=== PATIENT | male | born 1945 | race Caucasian/White ===

== ENCOUNTER 2017-07-15 17:11 | Inpatient (IN) ==
[2017-07-15] MEDS ORDERED: *HR* HYDROmorphone (PF) 1 MG/ML SYRINGE IVP ONE (17:34)
[2017-07-15] MEDS ORDERED: Ondansetron 4 MG/2 ML VIAL IVP ONE (17:34)
[2017-07-15] MEDS ORDERED: Bisacodyl 10 MG RECTAL SUPPOSITORY RC STA (18:06)
--- NOTE | 2017-07-15 18:31 | Emergency Department Note ---
Disposition Clinical Impression: Bowel obstruction Qualifiers: Intestinal obstruction type: unspecified Intestinal obstruction extent: unspecified extent Qualified Code(s): K56.609 - Unspecified intestinal obstruction, unspecified as to partial versus complete obstruction Disposition: Admitted As Inpatient Condition: Fair Time of Disposition: 18:32 Abdominal Pain HPI - General Chief Complaint: ED Abdominal Pain Stated Complaint: constipation Time Seen by Provider: 07/15/17 17:25 Source: patient Nursing Notes Reviewed: Yes Vital Signs Reviewed: Yes - History of Present Illness HPI Narrative: Patient has abdominal pain for the last 4 days which began gradually and is constant and is intermittently worse and is told sensation without radiation to the back. It is generalized. [facility] done and showed dilation of the bowel. Patient does not have any fever or vomiting. No dysuria or urinary frequency, blood in the urine or stool. No history of abdominal surgeries. Social history: No smoking or alcohol. Is here with his Pain Scale: 4 - Related Data Previous Rx's Medication Instructions Recorded levoFLOXacin [Levaquin] 500 mg PO DAILY #6 tablet 03/11/16 Allergies Allergy/AdvReac Type Severity Reaction Status Date / Time senna AdvReac Unknown Verified 07/15/17 18:13 Review of Systems: Constitutional: No fever Vision: No blurred vision ENT: No rhinorrhea Respiratory: No cough Allergic: No allergies : No blood in urine GI: No blood in stool Hematologic: No bruising Dermatologic: No skin rash Musculoskeletal: No pain in the extremities Neuro: No numbness of the extremities Abdominal Pain PMH - Past Medical History Medical history: Reports: asthma, COPD, coronary artery disease, GERD, glaucoma , hyperlipidemia, hypertension, migraine, RA, renal disease, thyroid disease, other Male Surgical History: Reports: other Psychiatric history: Reports: anxiety, depression - Social History Smoking status: Former smoker Alcohol use: Reports: none Drug use: Reports: none Physical Exam CONSTITUTIONAL: Alert and oriented X3, well-nourished, well appearing, in no apparent distress HEAD: Normocephalic; atraumatic. EYES: PERRL, no scleral icterus. NOSE: The nose is normal in appearance without rhinorrhea RESP: Normal chest excursion with respiration; breath sounds clear and equal bilaterally; no wheezes, rhonchi, or rales CARD: Regular rhythm, without murmurs, rub or gallop ABD: The abdomen has generalized distention to moderate to severe degree and generalized moderate to severe tenderness with palpation but soft without rigidity, rebound, guarding. Skin color is normal in appearance SKIN: Normal for age and race; warm and dry; no apparent lesions - General General appearance: alert Course Vital Signs Temperature 97.9 F 07/15/17 17:13 Pulse Rate 103 07/15/17 17:13 Respiratory Rate 16 07/15/17 17:13 Blood Pressure 155/109 07/15/17 17:13 O2 Sat by Pulse Oximetry 96 07/15/17 17:13 Temperature 98.9 F 07/15/17 18:14 Pulse Rate 94 07/15/17 18:14 Respiratory Rate 15 07/15/17 18:14 Blood Pressure 136/102 07/15/17 18:14 O2 Sat by Pulse Oximetry 98 07/15/17 18:14 Oxygen Delivery Oxygen Delivery Room Air Abdominal Pain - MDM Narrative Medical decision making narrative: I did review the patient's labs which show hyponatremia with a sodium of 125, no leukocytosis, CT scan is reviewed showing dilation of the transverse and right ascending colon possibly from a stricture. This is discussed with surgery and they did review the CT scan also. The patient is admitted to the hospitalist who accepts the patient for admission and surgery's consult at the patient did receive IV pain medicine and IV fluids. Declines any further pain medicine at this time. 183
[2017-07-15] MEDS ORDERED: *HR* Morphine 2 MG/ML SYRINGE IVP ONE (20:02)
[2017-07-15] MEDS ORDERED: Ketoconazole 2% CRM 15 GM TUBE TP PRN (21:17)
[2017-07-15] MEDS ORDERED: Naloxone 0.4 MG/ML INJ IVP PRN (21:19)
--- NOTE | 2017-07-15 21:28 | Internal Med History&Physical ---
Date of Encounter: 07/15/17 Time of Encounter: 21:00 Assessment and Plan (1) Bowel obstruction Current visit: Yes Status: Acute Acute abdominal pain and distention - secondary to large bowel obstruction, the left transverse and right ascending colon NPO, NG tube to low intermittent suction, IV fluids, IV Zofran IV Protonix IV Morphine as needed for pain CT abdomen - reviewed Gen. surgery consult Cardiac telemetry, intake output, labs in a.m., monitor closely Qualifiers: Intestinal obstruction type: unspecified Intestinal obstruction extent: unspecified extent Qualified Code(s): K56.609 - Unspecified intestinal obstruction, unspecified as to partial versus complete obstruction (2) Hypertension Current visit: Yes Status: Chronic Essential hypertension, controlled, monitor Qualifiers: Hypertension type: essential hypertension Qualified Code(s): I10 - Essential (primary) hypertension (3) Hyperlipidemia Current visit: Yes Status: Chronic Qualifiers: Hyperlipidemia type: unspecified Qualified Code(s): E78.5 - Hyperlipidemia , unspecified (4) DVT prophylaxis Current visit: Yes Status: Acute Heparin subcutaneous Internal Medicine - H&P: HPI Chief complaint: Abdominal pain and distention Admitted From: Emergency Dept Plans for Post Hospital Care: Home History of present illness: Mr. Briggs is a 72 year old male with past medical history of COPD, coronary artery disease, GERD, hyper tension, hyperlipidemia, arthritis, renal disease, thyroid disease, anxiety and depression. He presents to the ED with complaints of abdominal pain and distention. Examined in the room. Patient is awake and alert. Family is at bedside. Not in any distress. He is able to provide all history. Patient is hard of hearing. Patient states pain and distention started about 4 days ago and has gradually worsened. He complains of generalized abdominal pain. Rates at 6/ 10. No aggravating or alleviating factors. He does have nausea and vomiting which is aggravated with food intake. His intake has been poor over the past several days. Patient states he does have a history of chronic constipation with intermittent diarrhea as well. He has never been diagnosed with IBS in the past. Patient denies chest pain or shortness of breath. Denies headache or cough. No other acute complaints. Patient was transferred to the ED from the [facility]. Initial workup revealed dilation of the transverse and right ascending colon possibly from a stricture. General surgery was consulted. They have advised IV fluids and IV pain medication. NG tube to low intermittent suction. Patient and family have been explained about his condition plan of care in detail. They understood and agreed. No unanswered questions. CODE STATUS full code. Past Med Surg Social Fam HX - Past Medical History Medical history: asthma, COPD, coronary artery disease, GERD, glaucoma, hyperlipidemia, hypertension, migraine, RA, renal disease, thyroid disease, other Psychiatric history: anxiety, depression - Past Surgical History Surgical History: no surgical history - Social History Smoking Status: Former smoker Smokeless Tobacco Status: No Alcohol use: none Drug use: none Internal Medicine - H&P: Meds Alendronate Sodium [Fosamax] 5 mg PO DAILY 07/15/17 [History] Aspirin Enteric Coated [Aspirin EC] 81 mg PO DAILY 07/15/17 [History] Atorvastatin Calcium [Lipitor] 80 mg PO HS 07/15/17 [History] Brimonidine 0.2% [Alphagan] 1 drop BOTH EYES BID 07/15/17 [History] Carboxymethylcellulose Sodium [Refresh Liquigel] 1 drop BOTH EYES QID 07/15/17 [ History] Cholecalciferol (D-3) [Vitamin D] 1,000 unit PO BID 07/15/17 [History] Clobetasol Propionate [Temovate] 1 appl TP BID 07/15/17 [History] Cyanocobalamin (Vitamin B-12) [Vitamin B12] 2,000 mcg PO DAILY 07/15/17 [History ] Cyclobenzaprine [Flexeril] 10 mg PO BID PRN 07/15/17 [History] Cyclosporine [Restasis Multidose] 1 drop BOTH EYES Q12H 07/15/17 [History] Folic Acid 1 mg PO DAILY 07/15/17 [History] HydrOXYzine 10 mg PO BID PRN 07/15/17 [History] Isosorbide MONOnitrate (24 HR) [Imdur] 15 mg PO DAILY 07/15/17 [History] Ketoconazole 2% CRM [Nizoral Cream] 1 appl TP BID PRN 07/15/17 [History] Ketoconazole Shampoo [Nizoral Shampoo] 1 appl TP Q48H 07/15/17 [History] Lisinopril 2.5 mg PO DAILY 07/15/17 [History] Magic Mouthwash [Magic Mouthwash BLM] 15 ml PO DAILY 07/15/17 [History] Magnesium Hydroxide [Milk of Magnesia] 1,200 mg PO BID PRN 07/15/17 [History] Melatonin [Melatin] 6 mg PO HS 07/15/17 [History] Metoprolol [Lopressor] 25 mg PO BID 07/15/17 [History] Mirtazapine [Remeron] 30 mg PO HS 07/15/17 [History] Nitroglycerin [Nitrostat] 0.4 mg SL Q5M PRN 07/15/17 [History] Omeprazole [PriLOSEC] 40 mg PO DAILY 07/15/17 [History] Pilocarpine HCl [Salagen] 5 mg PO TID 07/15/17 [History] Polyethylene Glycol 3350 [MiraLAX] 17 gm PO Q48H 07/15/17 [History] Quetiapine Fumarate [SEROquel] 600 mg PO HS 07/15/17 [History] SUMAtriptan Succinate [Imitrex] 100 mg PO Q2H PRN MDD 200 mg 07/15/17 [History] Sucralfate [Carafate] 1 gm PO QAM AND QHS 07/15/17 [History] Tamsulosin [Flomax] 0.4 mg PO DAILY 07/15/17 [History] Topiramate [Topamax] 150 mg PO HS 07/15/17 [History] Tramadol HCl [Ultram] 75 mg PO QID PRN 07/15/17 [History] predniSONE [PredniSONE] 5 mg PO DAILY 07/15/17 [History] 3 Allergy/AdvReac Type Severity Reaction Status Date / Time senna AdvReac Unknown Verified 07/15/17 18:13 All Systems PM: A 10-system review of systems was performed and is negative for pertinent findings except as documented above in the HPI. - Constitutional Constitutional: fatigue, weakness, no fever(s) - EENT Eyes: no blurry vision - Cardiovascular Cardiovascular ROS IM: no chest pain, no diaphoresis, no dyspnea, no dyspnea on exertion, no edema, no lightheadedness, no orthopnea, no palpitations, no syncope - Respiratory Respiratory: no cough, no dyspnea, no hemoptysis, no dyspnea on exertion, no wheezing, no chest congestion - Gastrointestinal Gastrointestinal: abdominal pain, bloating, cramping, diarrhea, heartburn, nausea, vomiting, no hematochezia - Genitourinary Genitourinary ROS male: no dysuria - Neurological Neurological ROS: no abnormal gait, no confusion, no convulsions, no dizziness, no numbness, no tingling - Constitutional Vitals: Temp Pulse Resp BP Pulse Ox 97.7 F 83 16 138/101 97 07/15/17 18:56 07/15/17 18:56 07/15/17 18:56 07/15/17 18:56 07/15/17 18:56 General appearance: Present: cooperative, A&O X 3, pleasant, no acute distress, answers questions appropriately - Head Head exam: Present: atraumatic - Eye Eye exam: Present: EOMI - ENT ENT exam: Present: mucous membranes dry - Respiratory Respiratory exam: Present: CTAB. Absent: rales, rhonchi, wheezes, tachypnea - Cardiovascular Cardiovascular exam: Present: RRR, +S1, +S2 - GI/Abdominal GI/Abdominal exam: Present: distended, firm, tenderness (Mild generalized), no peritoneal signs. Absent: guarding, soft - Extremities Exam Extremities exam: Present: radial pulses palpable and symmetrical. Absent: calf tenderness, cyanotic, pedal edema - Neurological Exam Neurological exam: Present: alert, oriented X3, no focal deficits. Absent: facial droop, speech deficit Internal Med - H&P Results - Labs CBC & Chem 7: 07/15/17 21:52 07/15/17 21:52
[2017-07-15 21:59] LABS: Eosinophils # 0.1 K/mcL (0.0-0.6); Eosinophils % 1.5 %; Hematocrit 30.8 % (37.5-50.1); Immature Granulocytes % 0.2 % (0-4); Immature Platelets 2.4 % (1.1-6.1); Lymphocytes # 0.7 K/mcL (0.6-4.6); Lymphocytes % 15.3 %; Mean Corpuscular HGB Conc 35.7 g/dL (31.6-35.5); Mean Corpuscular Hemoglobin 32.4 pg (28.0-33.3); Mean Corpuscular Volume 90.6 fL (83.0-100.0); Mean Platelet Volume 8.9 fL (9.4-12.4); Monocytes # 0.8 K/mcL (0.0-1.3); Monocytes % 17.5 %; Platelet Count 189 K/mcL (140-400); Red Cell Distribution Width 12.8 % (11.5-14.5); Segmented Neutrophils % 65.5 %
[2017-07-15 22:05] LABS: INR 1.1
[2017-07-15] MEDS: Pantoprazole 40 MG VIAL IVP SCH (22:12)
[2017-07-15] MEDS: 0.9 % Sodium Chloride 1,000 ML IVC SCH (22:12)
[2017-07-15 22:13] LABS: Alanine Aminotransferase 22 Units/L (0-55); Albumin 3.1 g/dL (3.5-5.0); Albumin/Globulin Ratio 1.2 (1.1-2.2); Alkaline Phosphatase 67 Units/L (38-126); Aspartate Amino Transferase 20 Units/L (5-34); BUN/Creatinine Ratio 21 (6-26); Bilirubin,Total 0.9 mg/dL (0.2-1.2); Blood Urea Nitrogen 23 mg/dL (8-26); Calcium 8.4 mg/dL (8.6-10.8); Carbon Dioxide 22 mEq/L (19-29); Chloride 93 mEq/L (98-109); Globulin 2.6 g/dL (2.4-3.5); Glucose 85 mg/dL (70-99); Magnesium 2.6 mg/dL (1.6-2.6); Osmolality,Calculated 257 (280-300); Potassium 3.6 mEq/L (3.5-4.5); Sodium 122 mEq/L (136-145); Total Protein 5.7 g/dL (6.0-8.3); eGFR For African Americans > 60 (> 60); eGFR For Non-African Americans > 60 (> 60)
[2017-07-16] MEDS: *HR* Morphine 2 MG/ML SYRINGE IVP PRN ×7 (01:44→21:00)
[2017-07-16] MEDS: *HR* Heparin 5,000 UNIT/ML VIAL SQ SCH ×2 (04:47→17:00)
[2017-07-16 05:07] LABS: Bilirubin,Urine Negative (Negative); Blood,Urine Negative (Negative); Clarity,Urine Clear (Clear); Color,Urine Yellow (Yellow); Glucose,Urine (UA) Normal (Normal); Ketones,Urine Negative (Negative); Leukocyte Esterase,Urine Negative (Negative); Nitrite,Urine Negative (Negative); PH,Urine 6.5 pH Units (5.0-8.0); Protein,Urine Negative (Neg-Trace); Specific Gravity,Urine 1.023 (1.010-1.025); Urobilinogen,Urine Normal (Normal)
[2017-07-16 05:24] LABS: Eosinophils # 0.1 K/mcL (0.0-0.6); Eosinophils % 1.4 %; Hematocrit 31.5 % (37.5-50.1); Hemoglobin 11.1 g/dL (12.9-16.9); Immature Granulocytes % 0.5 % (0-4); Lymphocytes # 0.5 K/mcL (0.6-4.6); Lymphocytes % 11.5 %; Mean Corpuscular HGB Conc 35.2 g/dL (31.6-35.5); Mean Corpuscular Hemoglobin 32.3 pg (28.0-33.3); Mean Corpuscular Volume 91.6 fL (83.0-100.0); Mean Platelet Volume 9.6 fL (9.4-12.4); Monocytes # 0.7 K/mcL (0.0-1.3); Monocytes % 16.3 %; Neutrophils # 3.1 K/mcL (1.6-8.9); Platelet Count 180 K/mcL (140-400); Red Blood Count 3.44 M/mcL (4.19-5.50); Red Cell Distribution Width 12.7 % (11.5-14.5); Segmented Neutrophils % 70.3 %
[2017-07-16 05:38] LABS: BUN/Creatinine Ratio 18 (6-26); Blood Urea Nitrogen 20 mg/dL (8-26); Calcium 8.3 mg/dL (8.6-10.8); Carbon Dioxide 21 mEq/L (19-29); Chloride 94 mEq/L (98-109); Glucose 76 mg/dL (70-99); Osmolality,Calculated 259 (280-300); Potassium 3.5 mEq/L (3.5-4.5); Sodium 124 mEq/L (136-145); eGFR For African Americans > 60 (> 60); eGFR For Non-African Americans > 60 (> 60)
[2017-07-16] MEDS: Pantoprazole 40 MG VIAL IVP SCH (07:59)
[2017-07-16] MEDS: Artificial Tears SOLN 15 ML BOTTLE BOTH EYES SCH ×4 (07:59→21:00)
[2017-07-16 09:47] LABS: BUN/Creatinine Ratio 16 (6-26); Blood Urea Nitrogen 17 mg/dL (8-26); Calcium 7.9 mg/dL (8.6-10.8); Carbon Dioxide 20 mEq/L (19-29); Chloride 96 mEq/L (98-109); Glucose 74 mg/dL (70-99); Osmolality,Calculated 260 (280-300); Potassium 3.4 mEq/L (3.5-4.5); Sodium 125 mEq/L (136-145); eGFR For African Americans > 60 (> 60); eGFR For Non-African Americans > 60 (> 60)
[2017-07-16] MEDS: 0.9 % Sodium Chloride 1,000 ML IVC SCH (10:50)
[2017-07-16] MEDS: Chloraseptic Spray 177 ML BOTTLE MM PRN ×2 (11:39→16:59)
--- NOTE | 2017-07-16 12:18 | General Surgery Consult Note ---
Date of Encounter: 07/16/17 Time of Encounter: 12:16 Assessment and Plan (1) Adynamic ileus Current Visit: Yes Status: Acute We will continue with NG decompression of his stomach and bowel rest. I will recheck an acute abdominal series tomorrow to evaluate the dilation of the small bowel loops as well as his colon. I discussed this plan with the family. Everybody is in agreement. History of Present Illness Consult date: 07/16/17 History of present illness: This is 72-year-old male presents to the hospital via the emergency department[facility] and was sent to [facility] due to abdominal distention and obstipation symptoms and increasing abdominal pain. Patient has dementia. The majority of the information was taken from the and daughter. He has never had any episodes like this in the past. He denies any appetite currently. He also denies having any flatus. States his abdominal pain is moderate in nature and feels as if he is cramping continually. Past Med Surg Social Fam HX - Past Medical History Medical history: asthma, COPD, coronary artery disease, GERD, glaucoma, hyperlipidemia, hypertension, migraine, RA, renal disease, thyroid disease, other Psychiatric history: anxiety, depression, other (Dementia) - Past Surgical History Surgical History: no surgical history - Social History Smoking Status: Former smoker Smokeless Tobacco Status: No Alcohol use: none Drug use: none Medications and Allergies Alendronate Sodium [Fosamax] 5 mg PO DAILY 07/15/17 [History] Aspirin Enteric Coated [Aspirin EC] 81 mg PO DAILY 07/15/17 [History] Atorvastatin Calcium [Lipitor] 80 mg PO HS 07/15/17 [History] Brimonidine 0.2% [Alphagan] 1 drop BOTH EYES BID 07/15/17 [History] Carboxymethylcellulose Sodium [Refresh Liquigel] 1 drop BOTH EYES QID 07/15/17 [ History] Cholecalciferol (D-3) [Vitamin D] 1,000 unit PO BID 07/15/17 [History] Clobetasol Propionate [Temovate] 1 appl TP BID 07/15/17 [History] Cyanocobalamin (Vitamin B-12) [Vitamin B12] 2,000 mcg PO DAILY 07/15/17 [History ] Cyclobenzaprine [Flexeril] 10 mg PO BID PRN 07/15/17 [History] Cyclosporine [Restasis Multidose] 1 drop BOTH EYES Q12H 07/15/17 [History] Folic Acid 1 mg PO DAILY 07/15/17 [History] HydrOXYzine 10 mg PO BID PRN 07/15/17 [History] Isosorbide MONOnitrate (24 HR) [Imdur] 15 mg PO DAILY 07/15/17 [History] Ketoconazole 2% CRM [Nizoral Cream] 1 appl TP BID PRN 07/15/17 [History] Ketoconazole Shampoo [Nizoral Shampoo] 1 appl TP Q48H 07/15/17 [History] Lisinopril 2.5 mg PO DAILY 07/15/17 [History] Magic Mouthwash [Magic Mouthwash BLM] 15 ml PO DAILY 07/15/17 [History] Magnesium Hydroxide [Milk of Magnesia] 1,200 mg PO BID PRN 07/15/17 [History] Melatonin [Melatin] 6 mg PO HS 07/15/17 [History] Metoprolol [Lopressor] 25 mg PO BID 07/15/17 [History] Mirtazapine [Remeron] 30 mg PO HS 07/15/17 [History] Nitroglycerin [Nitrostat] 0.4 mg SL Q5M PRN 07/15/17 [History] Omeprazole [PriLOSEC] 40 mg PO DAILY 07/15/17 [History] Pilocarpine HCl [Salagen] 5 mg PO TID 07/15/17 [History] Polyethylene Glycol 3350 [MiraLAX] 17 gm PO Q48H 07/15/17 [History] Quetiapine Fumarate [SEROquel] 600 mg PO HS 07/15/17 [History] SUMAtriptan Succinate [Imitrex] 100 mg PO Q2H PRN MDD 200 mg 07/15/17 [History] Sucralfate [Carafate] 1 gm PO QAM AND QHS 07/15/17 [History] Tamsulosin [Flomax] 0.4 mg PO DAILY 07/15/17 [History] Topiramate [Topamax] 150 mg PO HS 07/15/17 [History] Tramadol HCl [Ultram] 75 mg PO QID PRN 07/15/17 [History] predniSONE [PredniSONE] 5 mg PO DAILY 07/15/17 [History] 3 Allergy/AdvReac Type Severity Reaction Status Date / Time senna AdvReac Unknown Verified 07/15/17 18:13 Review of Systems All systems PM: reviewed and no additional remarkable complaints except as stated All systems PM: A 10-system review of systems was performed and is negative for pertinent findings except as documented above in the HPI. General Surgery Exam Initial Vital Signs Temp Pulse Resp BP Pulse Ox 97.9 F 103 16 155/109 96 07/15/17 17:13 07/15/17 17:13 07/15/17 17:13 07/15/17 17:13 07/15/17 17:13 - General physical appearance well nourished, no distress - Eyes normal ocular movement - Neck trachea midline - Respiratory normal respiratory effort - Cardiovascular Cardiovascular exam: Present: RRR - Abdomen Abdomen general surgery: Present: soft, non tender - Integumentary Integumentary general surgery: Present: no abnormal pigmentation - Neurologic Present: CN 2-12 grossly intact, normal sensation - Psychiatric Psychiatric general surgery: Present: A&Ox3 Exam Initial Vital Signs Temp Pulse Resp BP Pulse Ox 97.9 F 103 16 155/109 96 07/15/17 17:13 07/15/17 17:13 07/15/17 17:13 07/15/17 17:13 07/15/17 17:13 Results - Labs 07/16/17 04:26 07/16/17 09:30 Abnormal lab results RBC 3.44 M/mcL (4.19-5.50) L 07/16/17 04:26 Hgb 11.1 g/dL (12.9-16.9) L 07/16/17 04:26 Hct 31.5 % (37.5-50.1) L 07/16/17 04:26 Lymphocytes # 0.5 K/mcL (0.6-4.6) L 07/16/17 04:26 Sodium 125 mEq/L (136-145) L 07/16/17 09:30 Potassium 3.4 mEq/L (3.5-4.5) L 07/16/17 09:30 Chloride 96 mEq/L (98-109) L 07/16/17 09:30 Calculated Osmolality 260 (280-300) L 07/16/17 09:30 Calcium 7.9 mg/dL (8.6-10.8) L 07/16/17 09:30 Serum Total Protein 5.7 g/dL (6.0-8.3) L 07/15/17 21:52 Albumin 3.1 g/dL (3.5-5.0) L 07/15/17 21:52 Diabetes panel 07/15/17 07/16/17 07/16/17 Range/Units 21:52 04:26 09:30 Sodium 122 L 124 L 125 L (136-145) mEq/L Potassium 3.6 3.5 3.4 L (3.5-4.5) mEq/L Chloride 93 L 94 L 96 L (98-109) mEq/L Carbon Dioxide 22 21 20 (19-29) mEq/L BUN 23 20 17 (8-26) mg/dL Creatinine 1.11 1.11 1.04 (0.72-1.25) mg/dL Glucose 85 76 74 (70-99) mg/dL Calcium 8.4 L 8.3 L 7.9 L (8.6-10.8) mg/dL AST 20 (5-34) Units/L ALT 22 (0-55) Units/L Alkaline Phosphatase 67 (38-126) Units/L Albumin 3.1 L (3.5-5.0) g/dL Calcium panel 07/15/17 07/16/17 07/16/17 Range/Units 21:52 04:26 09:30 Calcium 8.4 L 8.3 L 7.9 L (8.6-10.8) mg/dL Albumin 3.1 L (3.5-5.0) g/dL Pituitary panel 07/15/17 07/16/17 07/16/17 Range/Units 21:52 04:26 09:30 Sodium 122 L 124 L 125 L (136-145) mEq/L Potassium 3.6 3.5 3.4 L (3.5-4.5) mEq/L Chloride 93 L 94 L 96 L (98-109) mEq/L Carbon Dioxide 22 21 20 (19-29) mEq/L BUN 23 20 17 (8-26) mg/dL Creatinine 1.11 1.11 1.04 (0.72-1.25) mg/dL Glucose 85 76 74 (70-99) mg/dL Calcium 8.4 L 8.3 L 7.9 L (8.6-10.8) mg/dL Adrenal panel 07/15/17 07/16/17 07/16/17 Range/Units 21:52 04:26 09:30 Sodium 122 L 124 L 125 L (136-145) mEq/L Potassium 3.6 3.5 3.4 L (3.5-4.5) mEq/L Chloride 93 L 94 L 96 L (98-109) mEq/L Carbon Dioxide 22 21 20 (19-29) mEq/L BUN 23 20 17 (8-26) mg/dL Creatinine 1.11 1.11 1.04 (0.72-1.25) mg/dL Glucose 85 76 74 (70-99) mg/dL Calcium 8.4 L 8.3 L 7.9 L (8.6-10.8) mg/dL Total Bilirubin 0.9 (0.2-1.2) mg/dL AST 20 (5-34) Units/L ALT 22 (0-55) Units/L Alkaline Phosphatase 67 (38-126) Units/L Albumin 3.1 L (3.5-5.0) g/dL All other labs normal. Consult Discharge Plan - Plan Referrals: NONE,PCP [Primary Care Provider] -
--- NOTE | 2017-07-16 15:28 | Internal Med Progress Note ---
Date of Encounter: 07/16/17 Time of Encounter: 09:10 - Assessment and plan (1) Adynamic ileus Current Visit: Yes Status: Acute Assessment and plan: Patient has been seen by surgery today. Recommendations include continuing with NG decompression of his stomach, bowel rest. Acute abdominal series is ordered for tomorrow for reevaluation. KUB X-Ray 07/16/17 03:11 IMPRESSION: 1. The orogastric tube side port is noted proximal to the GE junction. This should be advanced approximately 11 cm. D/ / Jacob Zapata MD / Jacob Zapata MD Interpreting Provider: Jacob Zapata MD (2) Bowel obstruction Current Visit: Yes Status: Acute Assessment and plan: She reports several day history of acute abdominal pain and distention, CAT scan from outside facility showed large bowel obstruction in the left transverse and right ascending colon. His abdomen is distended, firm, tender. Patient only has faint, hypoactive bowel sounds in right lower quadrant. Continue NG tube to LI WS Continue IV fluid hydration Continue Accu-Cheks and treatment of hypoglycemia as needed. Continue IV Zofran and Protonix. Continue IV morphine as needed for pain. Qualifiers: Intestinal obstruction type: unspecified Intestinal obstruction extent: unspecified extent Qualified Code(s): K56.609 - Unspecified intestinal obstruction, unspecified as to partial versus complete obstruction (3) Hypertension Current Visit: Yes Status: Chronic Assessment and plan: Blood pressure is borderline. Will continue to evaluate and treat as needed after patient is no longer acutely ill. Qualifiers: Hypertension type: essential hypertension Qualified Code(s): I10 - Essential (primary) hypertension (4) Hyperlipidemia Current Visit: Yes Status: Chronic Assessment and plan: Chronic. Continue home medication. Qualifiers: Hyperlipidemia type: unspecified Qualified Code(s): E78.5 - Hyperlipidemia , unspecified (5) DVT prophylaxis Current Visit: Yes Status: Acute Assessment and plan: Heparin subcutaneous. - Time Spent With Patient less than 15 minutes - Subjective Interval history: Patient was seen and assessed at 9 AM. He reports 3-4 day history of abdominal pain, distention. Patient is alert and awake, appears to answer questions appropriately. Abdomen is distended, tender to palpation. Bowel sounds are absent. He denies diarrhea, nausea. He does report continued abdominal pain and we have adjusted his pain medication several times today to attempt to make him more comfortable. He denies chest pain shortness of breath or dizziness. We will continue to monitor. - Constitutional Vitals: Temp Pulse Resp BP Pulse Ox 98.1 F 50 16 148/83 97 07/16/17 15:21 07/16/17 15:21 07/16/17 15:21 07/16/17 15:21 07/16/17 15:21 General appearance: Present: cooperative, A&O X 3, pleasant, no acute distress, answers questions appropriately - Head Head exam: Present: atraumatic, normal inspection, normocephalic - Eye Eye exam: Present: normal appearance, conjuntiva pink, sclera anicteric - Neck Neck exam general surgery: Present: normal inspection, supple, trachea midline. Absent: lymphadenopathy, tenderness - Respiratory Respiratory exam: Present: CTAB. Absent: accessory muscle use, rales, rhonchi, wheezes - Cardiovascular Cardiovascular exam: Present: RRR, +S1, +S2. Absent: diastolic murmur, gallop, rubs, systolic murmur - GI/Abdominal GI/Abdominal exam: Present: diminished bowel sounds, distended, firm, tenderness. Absent: normal bowel sounds - Extremities Exam Extremities exam: Present: normal capillary refill, warm, radial pulses palpable and symmetrical. Absent: calf tenderness, cyanotic, pedal edema, tenderness - Neurological Exam Neurological exam: Present: alert, oriented X3, no focal deficits. Absent: facial droop, speech deficit - Skin Skin exam: Present: dry, intact, normal color, warm. Absent: rash Internal Medicine: Result - Labs CBC & Chem 7: 07/16/17 04:26 07/16/17 09:30 Labs: Short CBC 07/15/17 07/16/17 Range/Units 21:52 04:26 WBC 4.6 4.4 (4.3-11.1) K/mcL Hgb 11.0 L 11.1 L (12.9-16.9) g/dL Hct 30.8 L 31.5 L (37.5-50.1) % Plt Count 189 180 (140-400) K/mcL Neutrophils # 3.0 3.1 (1.6-8.9) K/mcL BMP 07/15/17 07/16/17 07/16/17 21:52 04:26 09:30 Sodium 122 L 124 L 125 L Potassium 3.6 3.5 3.4 L Chloride 93 L 94 L 96 L Carbon Dioxide 22 21 20 BUN 17 Creatinine 1.11 1.11 1.04 Glucose 85 76 74 Calcium 8.4 L 8.3 L 7.9 L Liver Function 07/15/17 Range/Units 21:52 Total Bilirubin 0.9 (0.2-1.2) mg/dL AST 20 (5-34) Units/L ALT 22 (0-55) Units/L Alkaline Phosphatase 67 (38-126) Units/L Albumin 3.1 L (3.5-5.0) g/dL Urine 07/16/17 Range/Units 04:58 Urine Color Yellow (Yellow) Urine Clarity Clear (Clear) Urine pH 6.5 (5.0-8.0) pH Units Ur Specific [place] 1.023 (1.010-1.025) Urine Protein Negative (Neg-Trace) mg/dL Urine Glucose (UA) Normal (Normal) mg/dL - ABG Interpretation ABG results: PT/INR, D-dimer PT 12.0 Seconds (9.4-12.1) 07/15/17 21:52 - Impressions Impressions KUB X-Ray 07/16/17 03:11 IMPRESSION: 1. The orogastric tube side port is noted proximal to the GE junction. This should be advanced approximately 11 cm. D/ / Jacob Zapata MD / Jacob Zapata MD Interpreting Provider: Jacob Zapata MD Consult Discharge Plan - Plan Referrals: NONE,PCP [Primary Care Provider] -
[2017-07-16] MEDS: D5% in 0.9% NACL 1,000 ML IVC SCH (16:59)
[2017-07-17] MEDS: *HR* Morphine 2 MG/ML SYRINGE IVP PRN ×4 (02:45→22:52)
[2017-07-17] MEDS: *HR* Heparin 5,000 UNIT/ML VIAL SQ SCH ×2 (05:59→17:57)
[2017-07-17] MEDS: D5% in 0.9% NACL 1,000 ML IVC SCH ×2 (06:23→22:57)
[2017-07-17 08:45] LABS: Basophils % 0.2 %; Eosinophils # 0.1 K/mcL (0.0-0.6); Eosinophils % 2.5 %; Hemoglobin 10.9 g/dL (12.9-16.9); Immature Granulocytes % 0.2 % (0-4); Immature Platelets 1.8 % (1.1-6.1); Lymphocytes # 0.4 K/mcL (0.6-4.6); Lymphocytes % 7.4 %; Mean Corpuscular HGB Conc 35.2 g/dL (31.6-35.5); Mean Corpuscular Hemoglobin 32.3 pg (28.0-33.3); Mean Platelet Volume 8.4 fL (9.4-12.4); Monocytes # 0.7 K/mcL (0.0-1.3); Monocytes % 14.1 %; Neutrophils # 3.7 K/mcL (1.6-8.9); Platelet Count 198 K/mcL (140-400); Red Blood Count 3.37 M/mcL (4.19-5.50); Red Cell Distribution Width 12.7 % (11.5-14.5); Segmented Neutrophils % 75.6 %
[2017-07-17 08:56] LABS: BUN/Creatinine Ratio 11 (6-26); Blood Urea Nitrogen 10 mg/dL (8-26); Calcium 8.2 mg/dL (8.6-10.8); Carbon Dioxide 24 mEq/L (19-29); Chloride 101 mEq/L (98-109); Glucose 105 mg/dL (70-99); Osmolality,Calculated 271 (280-300); Potassium 3.3 mEq/L (3.5-4.5); Sodium 131 mEq/L (136-145); eGFR For African Americans > 60 (> 60); eGFR For Non-African Americans > 60 (> 60)
[2017-07-17] MEDS: Artificial Tears SOLN 15 ML BOTTLE BOTH EYES SCH ×4 (10:07→20:04)
[2017-07-17] MEDS: Pantoprazole 40 MG VIAL IVP SCH (10:08)
--- NOTE | 2017-07-17 11:08 | General Surgery Progress Note ---
Date of Encounter: 07/17/17 Time of Encounter: 11:00 - Assessment and Plan (1) Adynamic ileus Current Visit: Yes Status: Acute Continue with conservative measure including: Bowel rest NG tube to LIWS SBFT today with gastrograffin via NG tube IV fluids Supportive care and pain control Serial abdominal exams Surgery will continue to follow and assess progress Subjective Patient reports: no new complaints, still having pain (mid-abdomen, mild improvement), voiding w/o difficulty, no flatus, no bowel movement, afebrile Objective Vital Signs - Last 8 Hours Temp Pulse Resp BP Pulse Ox 07/17/17 10:44 97.7 F 96 17 138/90 97 07/17/17 06:41 97.4 F L 71 16 115/80 94 07/17/17 04:04 98.1 F 94 16 161/106 96 Intake and Output 07/16/17 07/17/17 07/17/17 23:59 07:59 15:59 Intake Total 1000 / 1000 Output Total 750 / 750 1450 / 1450 Balance -750 / -750 -450 / -450 Intake: IV Fluids 1000 / 1000 D5% And 0.9% Nacl 1000 Ml 1,000 1000 / 1000 ML @ 75 mls/hr IVC .[id number] [facility] Rx#:[id number] Output: Urine 750 / 750 1250 / 1250 Gastric Drainage 200 / 200 Other: Weight 70.875 kg Blood Glucose* 66 129 Patient Weight 07/17/17 23:59 Weight 70.875 kg - General physical appearance well developed, well nourished, no distress - Eyes normal ocular movement - ENT dry mucosa, atraumatic, normocephalic - Neck Neck exam: trachea midline - Respiratory normal respiratory effort, clear to auscultation - Cardiovascular Cardiovascular exam: Present: RRR - Abdomen Abdomen: Present: soft, distended (improved), tender (mid-abdomen), wound (NG tube to LIWS with 250ml noted since midnight) - Neurologic CN 2-12 grossly intact - Psychiatric oriented to time, oriented to person, oriented to place, speech is normal, memory intact - Labs 07/17/17 08:39 07/17/17 08:39 Diabetes panel 07/17/17 Range/Units 08:39 Sodium 131 L (136-145) mEq/L Potassium 3.3 L (3.5-4.5) mEq/L Chloride 101 (98-109) mEq/L Carbon Dioxide 24 (19-29) mEq/L BUN 10 (8-26) mg/dL Creatinine 0.91 (0.72-1.25) mg/dL Glucose 105 H (70-99) mg/dL Calcium 8.2 L (8.6-10.8) mg/dL Calcium panel 07/17/17 Range/Units 08:39 Calcium 8.2 L (8.6-10.8) mg/dL Pituitary panel 07/17/17 Range/Units 08:39 Sodium 131 L (136-145) mEq/L Potassium 3.3 L (3.5-4.5) mEq/L Chloride 101 (98-109) mEq/L Carbon Dioxide 24 (19-29) mEq/L BUN 10 (8-26) mg/dL Creatinine 0.91 (0.72-1.25) mg/dL Glucose 105 H (70-99) mg/dL Calcium 8.2 L (8.6-10.8) mg/dL Adrenal panel 07/17/17 Range/Units 08:39 Sodium 131 L (136-145) mEq/L Potassium 3.3 L (3.5-4.5) mEq/L Chloride 101 (98-109) mEq/L Carbon Dioxide 24 (19-29) mEq/L BUN 10 (8-26) mg/dL Creatinine 0.91 (0.72-1.25) mg/dL Glucose 105 H (70-99) mg/dL Calcium 8.2 L (8.6-10.8) mg/dL - Imaging Additional Studies: Chest/Abdomen X-ray 07/17/17 07:00 IMPRESSION: 1. Enteric tube with the side-port in the mid to distal esophagus. Recommend advancement by at least 8 cm. 2. No acute cardiopulmonary abnormality. 3. Prominent air-filled loops of bowel seen throughout the abdomen with stool within the colon. D/ / Reginaldo Arzola MD / Reginaldo Arzola MD Interpreting Provider: Reginaldo Arzola MD X-Ray 07/17/17 08:54 IMPRESSION: Nasogastric tube projects is intragastric. Advancement of 5 cm is suggested. Nonspecific bowel gas pattern. Left basilar atelectasis. D/ / Jacob Rodríguez MD / Jacob Rodríguez MD Interpreting Provider: Jacob Rodríguez MD Consult Discharge Plan - Plan Referrals: NONE,PCP [Primary Care Provider] -
--- NOTE | 2017-07-17 17:04 | Internal Med Progress Note ---
Date of Encounter: 07/17/17 Time of Encounter: 09:35 - Assessment and plan (1) Adynamic ileus Current Visit: Yes Status: Acute Assessment and plan: Patient has been seen by surgery today. Recommendations include continuing with NG decompression of his stomach, bowel rest. Small bowel follow-through being performed today. Surgery recommend serial abdominal exams Supportive care and pain control IV fluids Maintain NG tube to low intermittent wall suction Continued bowel rest Surgery is following. I appreciate their consultation and recommendations. Chest/Abdomen X-ray 07/17/17 07:00 IMPRESSION: 1. Enteric tube with the side-port in the mid to distal esophagus. Recommend advancement by at least 8 cm. 2. No acute cardiopulmonary abnormality. 3. Prominent air-filled loops of bowel seen throughout the abdomen with stool within the colon. D/ / Reginaldo Arzola MD / Reginaldo Arzola MD Interpreting Provider: Reginaldo Arzola MD X-Ray 07/17/17 08:54 IMPRESSION: Nasogastric tube projects is intragastric. Advancement of 5 cm is suggested. Nonspecific bowel gas pattern. Left basilar atelectasis. D/ / Jacob Rodríguez MD / Jacob Rodríguez MD Interpreting Provider: Jacob Rodríguez MD X-Ray 07/16/17 03:11 IMPRESSION: 1. The orogastric tube side port is noted proximal to the GE junction. This should be advanced approximately 11 cm. D/ / Jacob Zapata MD / Jacob Zapata MD Interpreting Provider: Jacob Zapata MD (2) Bowel obstruction Current Visit: Yes Status: Acute Assessment and plan: Patient reports several day history of acute abdominal pain and distention, CAT scan from outside facility showed large bowel obstruction in the left transverse and right ascending colon. His abdomen is distended, firm, tender. Patient only has faint, hypoactive bowel sounds in right lower quadrant. Continue NG tube to LI WS Continue IV fluid hydration Continue Accu-Cheks and treatment of hypoglycemia as needed. Continue IV Zofran and Protonix. Continue IV morphine as needed for pain. Plan as above Qualifiers: Intestinal obstruction type: unspecified Intestinal obstruction extent: unspecified extent Qualified Code(s): K56.609 - Unspecified intestinal obstruction, unspecified as to partial versus complete obstruction (3) Hypertension Current Visit: Yes Status: Chronic Assessment and plan: Blood pressure is borderline. Will continue to evaluate and treat as needed after patient is no longer acutely ill. Hydralazine IV when necessary with parameters. Qualifiers: Hypertension type: essential hypertension Qualified Code(s): I10 - Essential (primary) hypertension (4) Hyperlipidemia Current Visit: Yes Status: Chronic Assessment and plan: Chronic. Continue home medication. Qualifiers: Hyperlipidemia type: unspecified Qualified Code(s): E78.5 - Hyperlipidemia , unspecified (5) DVT prophylaxis Current Visit: Yes Status: Acute Assessment and plan: Heparin subcutaneous. - Subjective Interval history: Patient was seen and assessed at 935 AM. He is alert, awake, visiting with family member at bedside. He states his pain is somewhat better today. His abdomen is less distended and firm, abdomen is slightly softer today with bowel sounds heard in lower abdomen. He denies any bowel movements and states he has no appetite. He denies any headache, dizziness, chest pain or shortness of breath. - Constitutional Vitals: Temp Pulse Resp BP Pulse Ox 98.5 F 105 15 166/103 99 07/17/17 15:12 07/17/17 15:12 07/17/17 15:12 07/17/17 15:12 07/17/17 15:12 General appearance: Present: cooperative, A&O X 3, pleasant, no acute distress, answers questions appropriately - Head Head exam: Present: atraumatic, normal inspection, normocephalic - Eye Eye exam: Present: normal appearance, conjuntiva pink, sclera anicteric - Neck Neck exam general surgery: Present: normal inspection, supple, trachea midline. Absent: lymphadenopathy, tenderness - Respiratory Respiratory exam: Present: CTAB. Absent: accessory muscle use, rales, rhonchi, wheezes - Cardiovascular Cardiovascular exam: Present: RRR, +S1, +S2. Absent: diastolic murmur, gallop, rubs, systolic murmur - GI/Abdominal GI/Abdominal exam: Present: normal bowel sounds, soft, no peritoneal signs. Absent: distended, hepatomegaly, tenderness - Extremities Exam Extremities exam: Present: normal capillary refill, normal inspection, warm, radial pulses palpable and symmetrical. Absent: calf tenderness, cyanotic, pedal edema, tenderness - Neurological Exam Neurological exam: Present: alert, oriented X3, no focal deficits. Absent: facial droop, speech deficit - Skin Skin exam: Present: dry, intact, normal color, warm. Absent: rash Internal Medicine: Result - Labs CBC & Chem 7: 07/17/17 08:39 07/17/17 08:39 Labs: Short CBC 07/17/17 Range/Units 08:39 WBC 4.9 (4.3-11.1) K/mcL Hgb 10.9 L (12.9-16.9) g/dL Hct 31.0 L (37.5-50.1) % Plt Count 198 (140-400) K/mcL Neutrophils # 3.7 (1.6-8.9) K/mcL BMP 07/17/17 08:39 Sodium 131 L Potassium 3.3 L Chloride 101 Carbon Dioxide 24 BUN 10 Creatinine 0.91 Glucose 105 H Calcium 8.2 L - ABG Interpretation ABG results: PT/INR, D-dimer PT 12.0 Seconds (9.4-12.1) 07/15/17 21:52 - Impressions Impressions Chest/Abdomen X-ray 07/17/17 07:00 IMPRESSION: 1. Enteric tube with the side-port in the mid to distal esophagus. Recommend advancement by at least 8 cm. 2. No acute cardiopulmonary abnormality. 3. Prominent air-filled loops of bowel seen throughout the abdomen with stool within the colon. D/ / Reginaldo Arzola MD / Reginaldo Arzola MD Interpreting Provider: Reginaldo Arzola MD X-Ray 07/17/17 08:54 IMPRESSION: Nasogastric tube projects is intragastric. Advancement of 5 cm is suggested. Nonspecific bowel gas pattern. Left basilar atelectasis. D/ / Jacob Rodríguez MD / Jacob Rodríguez MD Interpreting Provider: Jacob Rodríguez MD Consult Discharge Plan - Plan Referrals: NONE,PCP [Primary Care Provider] -
[2017-07-18] MEDS: *HR* Heparin 5,000 UNIT/ML VIAL SQ SCH ×2 (05:15→18:35)
--- NOTE | 2017-07-18 11:30 | General Surgery Progress Note ---
Date of Encounter: 07/18/17 Time of Encounter: 11:27 - Assessment and Plan (1) Adynamic ileus Current Visit: Yes Status: Acute Continue with conservative measure including: Bowel rest NG tube to LIWS IV fluids Supportive care and pain control Serial abdominal exams Surgery will continue to follow and assess progress; awaiting return of bowel function (2) Hypokalemia Current Visit: Yes Status: Acute replete lytes Subjective Patient reports: no new complaints, other (no acute distress; ) Objective Vital Signs - Last 8 Hours Temp Pulse Resp BP Pulse Ox 07/18/17 11:26 97.8 F 63 16 137/87 94 07/18/17 06:58 98.7 F 97 16 149/88 96 07/18/17 04:01 98.4 F 90 16 146/93 96 Intake and Output 07/17/17 07/18/17 07/18/17 23:59 07:59 15:59 Intake Total 1000 / 1000 Output Total 1150 / 1150 Balance -150 / -150 Intake: IV Fluids 1000 / 1000 D5% And 0.9% Nacl 1000 Ml 1,000 1000 / 1000 ML @ 75 mls/hr IVC .[id number] [facility] Rx#:[id number] Oral 0 / 0 Output: Urine 350 / 350 Gastric Tube Lavage Amount 0 / 0 Right Nare 0 / 0 Wound Drainage 800 / 800 NG Tube 800 / 800 Other: Stool Size Moderate Moderate Stool Consistency liquid liquid Stool Characteristics Normal for Patient Stool Color Brown Brown # Bowel Movements 2 1 Weight 67.812 kg Blood Glucose* 114 107 Patient Weight 07/18/17 23:59 Weight 67.812 kg - General physical appearance well developed, well nourished, no distress - ENT normocephalic - Respiratory normal expansion, normal respiratory effort - Cardiovascular Cardiovascular exam: Present: RRR - Abdomen Abdomen: Present: soft, distended (mildy distended; non peritoneal) - Neurologic CN 2-12 grossly intact - Psychiatric oriented to time, oriented to person, oriented to place - Labs 07/17/17 08:39 07/17/17 08:39 Consult Discharge Plan - Plan Referrals: NONE,PCP [Primary Care Provider] -
[2017-07-18] MEDS: Artificial Tears SOLN 15 ML BOTTLE BOTH EYES SCH ×4 (12:18→21:56)
[2017-07-18] MEDS: Pantoprazole 40 MG VIAL IVP SCH (12:19)
[2017-07-18] MEDS: D5% in 0.9% NACL 1,000 ML IVC SCH (12:21)
[2017-07-18] MEDS: *HR* Morphine 2 MG/ML SYRINGE IVP PRN ×3 (13:54→22:07)
--- NOTE | 2017-07-18 17:04 | Internal Med Progress Note ---
Date of Encounter: 07/18/17 Time of Encounter: 13:30 - Assessment and plan (1) Adynamic ileus Current Visit: Yes Status: Acute Assessment and plan: Patient has been seen by surgery today. Recommendations include continuing with NG decompression of his stomach, bowel rest. Small bowel follow-through being performed today. Surgery recommend serial abdominal exams Supportive care and pain control IV fluids Maintain NG tube to low intermittent wall suction Continued bowel rest Surgery is following. I appreciate their consultation and recommendations. Chest/Abdomen X-ray 07/17/17 07:00 IMPRESSION: 1. Enteric tube with the side-port in the mid to distal esophagus. Recommend advancement by at least 8 cm. 2. No acute cardiopulmonary abnormality. 3. Prominent air-filled loops of bowel seen throughout the abdomen with stool within the colon. D/ / Reginaldo Arzola MD / Reginaldo Arzola MD Interpreting Provider: Reginaldo Arzola MD X-Ray 07/17/17 08:54 IMPRESSION: Nasogastric tube projects is intragastric. Advancement of 5 cm is suggested. Nonspecific bowel gas pattern. Left basilar atelectasis. D/ / Jacob Rodríguez MD / Jacob Rodríguez MD Interpreting Provider: Jacob Rodríguez MD X-Ray 07/16/17 03:11 IMPRESSION: 1. The orogastric tube side port is noted proximal to the GE junction. This should be advanced approximately 11 cm. D/ / Jacob Zapata MD / Jacob Zapata MD Interpreting Provider: Jacob Zapata MD Chest/Abdomen X-ray 07/17/17 07:00 IMPRESSION: 1. Enteric tube with the side-port in the mid to distal esophagus. Recommend advancement by at least 8 cm. 2. No acute cardiopulmonary abnormality. 3. Prominent air-filled loops of bowel seen throughout the abdomen with stool within the colon. D/ / Reginaldo Arzola MD / Reginaldo Arzola MD Interpreting Provider: Reginaldo Arzola MD X-Ray 07/17/17 08:54 IMPRESSION: Nasogastric tube projects is intragastric. Advancement of 5 cm is suggested. Nonspecific bowel gas pattern. Left basilar atelectasis. D/ / Jacob Rodríguez MD / Jacob Rodríguez MD Interpreting Provider: Jacob Rodríguez MD Small Bowel X-Ray 07/17/17 13:13 IMPRESSION: No significant change in gaseous distention of multiple bowel loops. Contrast extends to the ascending colon. NG tube tip projecting over the body of the stomach. D/ / Uriel Oconnor MD / Uriel Oconnor MD Interpreting Provider: Uriel Oconnor MD (2) Bowel obstruction Current Visit: Yes Status: Ruled-out Qualifiers: Intestinal obstruction type: unspecified Intestinal obstruction extent: unspecified extent Qualified Code(s): K56.609 - Unspecified intestinal obstruction, unspecified as to partial versus complete obstruction (3) Hypertension Current Visit: Yes Status: Chronic Assessment and plan: Blood pressure is borderline. Will continue to evaluate and treat as needed after patient is no longer acutely ill. Hydralazine IV when necessary with parameters. Beta tacos was started overnight due to tachycardia by another provider. Blood pressure still remains borderline. We will continue to monitor. Qualifiers: Hypertension type: essential hypertension Qualified Code(s): I10 - Essential (primary) hypertension (4) Hyperlipidemia Current Visit: Yes Status: Chronic Assessment and plan: Chronic. Continue home medication. Qualifiers: Hyperlipidemia type: unspecified Qualified Code(s): E78.5 - Hyperlipidemia , unspecified (5) DVT prophylaxis Current Visit: Yes Status: Acute Assessment and plan: Heparin subcutaneous. - Time Spent With Patient less than 15 minutes - Subjective Interval history: Patient was seen and assessed at 1330. He is alert, awake, visiting with family members at bedside. He states his pain is better today. His abdomen is less distended and firm, abdomen is slightly softer today with bowel sounds heard in lower abdomen. Pt reports that he is passing gas and is able to tolerate ice chips. He denies any headache, dizziness, chest pain or shortness of breath. - Constitutional Vitals: Temp Pulse Resp BP Pulse Ox 97.4 F L 88 15 159/92 97 07/18/17 15:24 07/18/17 15:24 07/18/17 15:24 07/18/17 15:24 07/18/17 15:24 General appearance: Present: cooperative, A&O X 3, pleasant, no acute distress, answers questions appropriately - Head Head exam: Present: atraumatic, normal inspection, normocephalic - Eye Eye exam: Present: normal appearance, conjuntiva pink, sclera anicteric - Neck Neck exam general surgery: Present: supple, trachea midline. Absent: lymphadenopathy - Respiratory Respiratory exam: Present: CTAB. Absent: accessory muscle use, rales, rhonchi, wheezes - Cardiovascular Cardiovascular exam: Present: RRR, +S1, +S2. Absent: diastolic murmur, gallop, rubs, systolic murmur - GI/Abdominal GI/Abdominal exam: Present: diminished bowel sounds, distended, hypoactive bowel sounds, soft, tenderness - Extremities Exam Extremities exam: Present: pedal edema, warm, radial pulses palpable and symmetrical. Absent: calf tenderness, cyanotic, tenderness - Neurological Exam Neurological exam: Present: alert, oriented X3, no focal deficits. Absent: facial droop, speech deficit - Skin Skin exam: Present: dry, intact, normal color, warm. Absent: rash Internal Medicine: Result - Labs CBC & Chem 7: 07/17/17 08:39 07/17/17 08:39 - ABG Interpretation ABG results: PT/INR, D-dimer PT 12.0 Seconds (9.4-12.1) 07/15/17 21:52 - Impressions Impressions Small Bowel X-Ray 07/17/17 13:13 IMPRESSION: No significant change in gaseous distention of multiple bowel loops. Contrast extends to the ascending colon. NG tube tip projecting over the body of the stomach. D/ / Uriel Oconnor MD / Uriel Oconnor MD Interpreting Provider: Uriel Oconnor MD Consult Discharge Plan - Plan Referrals: NONE,PCP [Primary Care Provider] -
[2017-07-19] MEDS: *HR* Heparin 5,000 UNIT/ML VIAL SQ SCH ×2 (04:54→17:00)
[2017-07-19] MEDS: *HR* Morphine 2 MG/ML SYRINGE IVP PRN ×3 (05:01→21:12)
[2017-07-19 06:29] LABS: Basophils % 0.2 %; Eosinophils # 0.2 K/mcL (0.0-0.6); Eosinophils % 4.2 %; Hematocrit 31.2 % (37.5-50.1); Hemoglobin 10.5 g/dL (12.9-16.9); Lymphocytes # 0.7 K/mcL (0.6-4.6); Lymphocytes % 14.1 %; Mean Corpuscular HGB Conc 33.7 g/dL (31.6-35.5); Mean Corpuscular Hemoglobin 31.9 pg (28.0-33.3); Mean Corpuscular Volume 94.8 fL (83.0-100.0); Mean Platelet Volume 9.1 fL (9.4-12.4); Monocytes # 0.7 K/mcL (0.0-1.3); Monocytes % 13.5 %; Neutrophils # 3.2 K/mcL (1.6-8.9); Platelet Count 186 K/mcL (140-400); Red Blood Count 3.29 M/mcL (4.19-5.50); Red Cell Distribution Width 12.8 % (11.5-14.5)
[2017-07-19 06:36] LABS: BUN/Creatinine Ratio 11 (6-26); Blood Urea Nitrogen 10 mg/dL (8-26); Calcium 8.3 mg/dL (8.6-10.8); Carbon Dioxide 22 mEq/L (19-29); Chloride 106 mEq/L (98-109); Glucose 98 mg/dL (70-99); Osmolality,Calculated 285 (280-300); eGFR For African Americans > 60 (> 60); eGFR For Non-African Americans > 60 (> 60)
[2017-07-19 06:40] LABS: Sodium 138 mEq/L (136-145)
[2017-07-19] MEDS: Pantoprazole 40 MG VIAL IVP SCH (08:41)
[2017-07-19] MEDS: Artificial Tears SOLN 15 ML BOTTLE BOTH EYES SCH ×4 (08:45→21:05)
[2017-07-19] MEDS: D5% in 0.9% NACL 1,000 ML IVC SCH (08:49)
--- NOTE | 2017-07-19 13:37 | General Surgery Progress Note ---
Date of Encounter: 07/19/17 Time of Encounter: 13:34 - Assessment and Plan (1) Adynamic ileus Current Visit: Yes Status: Acute 72M with adynamic ileus; currently resolving; 550 bilious output from NG tube - clamp NG tube for 4 hours; check residuals after 4 hours; if output is 300cc or less, then d/c NG tube - start CLD if NG tube is removed - judicious narcotic use - replete lytes: hypokalemia - draw magnesium and phosph - activity as tolerated - no acute surgery (2) Hypokalemia Current Visit: Yes Status: Acute replete lytes Subjective Patient reports: no new complaints, flatus, bowel movement Objective Vital Signs - Last 8 Hours Temp Pulse Resp BP Pulse Ox 07/19/17 12:58 133/95 07/19/17 11:56 96.0 F L 80 16 135/102 95 07/19/17 07:41 97.4 F L 89 16 156/96 98 Intake and Output 07/18/17 07/19/17 07/19/17 23:59 07:59 15:59 Intake Total 1000 / 1000 Output Total 300 / 300 300 / 300 225 / 225 Balance -300 / -300 700 / 700 -225 / -225 Intake: IV Fluids 1000 / 1000 D5% And 0.9% Nacl 1000 Ml 1,000 1000 / 1000 ML @ 60 mls/hr IVC .[id number] [facility] Rx#:[id number] Output: Urine 0 / 0 200 / 200 225 / 225 Gastric Tube Lavage Amount 300 / 300 100 / 100 Right Nare 300 / 300 100 / 100 Other: Meal NPO Stool Size Moderate Stool Consistency liquid Stool Color Brown # Urine Diapers 1 # Bowel Movements 1 Weight 69.082 kg Blood Glucose* 92 92 94 Patient Weight 07/19/17 23:59 Weight 69.082 kg - General physical appearance well developed, well nourished, no distress - Neck Neck exam: no lymphadectomy - Respiratory normal expansion, normal respiratory effort - Cardiovascular Cardiovascular exam: Present: RRR - Abdomen Abdomen: Present: soft, tender (minimally tender on exam) - Integumentary no rash - Neurologic CN 2-12 grossly intact - Psychiatric oriented to time, oriented to person, oriented to place - Labs 07/19/17 05:43 07/19/17 05:43 Diabetes panel 07/19/17 Range/Units 05:43 Sodium 138 D (136-145) mEq/L Potassium 3.0 L (3.5-4.5) mEq/L Chloride 106 (98-109) mEq/L Carbon Dioxide 22 (19-29) mEq/L BUN 10 (8-26) mg/dL Creatinine 0.87 (0.72-1.25) mg/dL Glucose 98 (70-99) mg/dL Calcium 8.3 L (8.6-10.8) mg/dL Calcium panel 07/19/17 Range/Units 05:43 Calcium 8.3 L (8.6-10.8) mg/dL Pituitary panel 07/19/17 Range/Units 05:43 Sodium 138 D (136-145) mEq/L Potassium 3.0 L (3.5-4.5) mEq/L Chloride 106 (98-109) mEq/L Carbon Dioxide 22 (19-29) mEq/L BUN 10 (8-26) mg/dL Creatinine 0.87 (0.72-1.25) mg/dL Glucose 98 (70-99) mg/dL Calcium 8.3 L (8.6-10.8) mg/dL Adrenal panel 07/19/17 Range/Units 05:43 Sodium 138 D (136-145) mEq/L Potassium 3.0 L (3.5-4.5) mEq/L Chloride 106 (98-109) mEq/L Carbon Dioxide 22 (19-29) mEq/L BUN 10 (8-26) mg/dL Creatinine 0.87 (0.72-1.25) mg/dL Glucose 98 (70-99) mg/dL Calcium 8.3 L (8.6-10.8) mg/dL Consult Discharge Plan - Plan Referrals: NONE,PCP [Primary Care Provider] -
[2017-07-19] MEDS ORDERED: Potassium Chloride Elixir 20 MEQ/15 ML UDC PO ONE (13:53)
--- NOTE | 2017-07-19 13:57 | Internal Med Progress Note ---
Date of Encounter: 07/19/17 Time of Encounter: 13:54 - Assessment and plan (1) Adynamic ileus Current Visit: Yes Status: Acute Assessment and plan: Patient is doing well, has been passing gas, had 2 small bowel movements today. Patient has been seen by surgery today. Recommendations clamp NG tube for 4 hours; check residuals after 4 hours; if output is 300cc or less, then d/c NG tube - start CLD if NG tube is removed I appreciate their consultation and recommendations. Chest/Abdomen X-ray 07/17/17 07:00 IMPRESSION: 1. Enteric tube with the side-port in the mid to distal esophagus. Recommend advancement by at least 8 cm. 2. No acute cardiopulmonary abnormality. 3. Prominent air-filled loops of bowel seen throughout the abdomen with stool within the colon. D/ / Reginaldo Arzola MD / Reginaldo Arzola MD Interpreting Provider: Reginaldo Arzola MD X-Ray 07/17/17 08:54 IMPRESSION: Nasogastric tube projects is intragastric. Advancement of 5 cm is suggested. Nonspecific bowel gas pattern. Left basilar atelectasis. D/ / Jacob Rodríguez MD / Jacob Rodríguez MD Interpreting Provider: Jacob Rodríguez MD X-Ray 07/16/17 03:11 IMPRESSION: 1. The orogastric tube side port is noted proximal to the GE junction. This should be advanced approximately 11 cm. D/ / Jacob Zapata MD / Jacob Zapata MD Interpreting Provider: Jacob Zapata MD Chest/Abdomen X-ray 07/17/17 07:00 IMPRESSION: 1. Enteric tube with the side-port in the mid to distal esophagus. Recommend advancement by at least 8 cm. 2. No acute cardiopulmonary abnormality. 3. Prominent air-filled loops of bowel seen throughout the abdomen with stool within the colon. D/ / Reginaldo Arozla MD / Reginaldo Arzola MD Interpreting Provider: Reginaldo Arzola MD X-Ray 07/17/17 08:54 IMPRESSION: Nasogastric tube projects is intragastric. Advancement of 5 cm is suggested. Nonspecific bowel gas pattern. Left basilar atelectasis. D/ / Jacob Rodríguez MD / Jacob Rodríguez MD Interpreting Provider: Jacob Rodríguez MD Small Bowel X-Ray 07/17/17 13:13 IMPRESSION: No significant change in gaseous distention of multiple bowel loops. Contrast extends to the ascending colon. NG tube tip projecting over the body of the stomach. D/ / Uriel Oconnor MD / Uriel Oconnor MD Interpreting Provider: Uriel Oconnor MD (2) Hypertension Current Visit: Yes Status: Chronic Assessment and plan: Blood pressure is borderline. Hydralazine IV when necessary with parameters. We will restart home meds while cramped Qualifiers: Hypertension type: essential hypertension Qualified Code(s): I10 - Essential (primary) hypertension (3) Hyperlipidemia Current Visit: Yes Status: Chronic Assessment and plan: Chronic. Continue home medication. Qualifiers: Hyperlipidemia type: unspecified Qualified Code(s): E78.5 - Hyperlipidemia , unspecified (4) Hypokalemia Current Visit: Yes Status: Acute Assessment and plan: We will replace IV 40 M EDQ and oral for kcl EDQ (5) DVT prophylaxis Current Visit: Yes Status: Acute Assessment and plan: Heparin subcutaneous. - Time Spent With Patient 25 - 35 minutes - Subjective Interval history: Patient was admitted for ileus, he has been on NG. Per patient is doing better , he has been passing gas, had to small frequent bowel movements since last night. Abdominal soft. He still complaining of abdominal pain 6 out of 10 burning any distention. - Constitutional Vitals: Temp Pulse Resp BP Pulse Ox 96.0 F L 80 16 133/95 95 07/19/17 11:56 07/19/17 11:56 07/19/17 11:56 07/19/17 12:58 07/19/17 11:56 CONSTITUTIONAL: patient appears as an age appropriate male in no acute distress. EYES Clear sclerae, bilateral pupils are equal, reactive to light. EMOI. RESPIRATORY: No accessory muscle use, bilateral clear to auscultation, no wheezing, no crackles/rales. CARDIOVASCULAR: Regular heart rate, normal S1 and S2, no murmurs GASTROINTESTINAL: bowel sounds present, soft, no tenderness. MUSCULOSKELETAL: Joints in normal range of motion, no clubbing, no edema, no cyanosis. Bilateral peripheral pulses 2+. NEUROLOGIC: CN II to XII are grossly intact, no focal neurological deficit. General appearance: Present: cooperative, A&O X 3, pleasant, no acute distress, answers questions appropriately Internal Medicine: Result - Labs CBC & Chem 7: 07/19/17 05:43 07/19/17 05:43 Labs: Short CBC 07/19/17 Range/Units 05:43 WBC 4.8 (4.3-11.1) K/mcL Hgb 10.5 L (12.9-16.9) g/dL Hct 31.2 L (37.5-50.1) % Plt Count 186 (140-400) K/mcL Neutrophils # 3.2 (1.6-8.9) K/mcL BMP 07/19/17 05:43 Sodium 138 D Potassium 3.0 L Chloride 106 Carbon Dioxide 22 BUN 10 Creatinine 0.87 Glucose 98 Calcium 8.3 L - ABG Interpretation ABG results: PT/INR, D-dimer PT 12.0 Seconds (9.4-12.1) 07/15/17 21:52 - Impressions Impressions KUB X-Ray 07/19/17 05:00 IMPRESSION: All transition point from dilated transverse colon to decompressed descending colon at the splenic flexure. An obstructing lesion in this location is not excluded. RECOMMENDATION: Consider colonoscopy D/ / Raphael Dockery MD / Raphael Dockery MD Interpreting Provider: Raphael Dockery MD Consult Discharge Plan - Plan Referrals: NONE,PCP [Primary Care Provider] -
[2017-07-20] MEDS: D5% in 0.9% NACL 1,000 ML IVC SCH ×3 (01:50→21:10)
[2017-07-20] MEDS ORDERED: *HR* Dextrose 50 % in Water (Syg) 50 ML SYRINGE IVP PRN (06:07)
[2017-07-20] MEDS ORDERED: D5% in Water 1,000 ML IVC PRN (06:07)
[2017-07-20] MEDS ORDERED: Dextrose Gel 15 GM PO PRN ×2 (06:07)
[2017-07-20] MEDS ORDERED: *HR* Dextrose 50 % in Water (Syg) 50 ML SYRINGE ONE (06:15)
[2017-07-20] MEDS: *HR* Heparin 5,000 UNIT/ML VIAL SQ SCH ×2 (06:29→16:44)
[2017-07-20] MEDS: *HR* Morphine 2 MG/ML SYRINGE IVP PRN ×3 (06:30→18:57)
[2017-07-20 07:33] LABS: Basophils % 0.2 %; Eosinophils # 0.2 K/mcL (0.0-0.6); Eosinophils % 4.1 %; Hematocrit 36.8 % (37.5-50.1); Immature Granulocytes % 1.1 % (0-4); Lymphocytes # 0.7 K/mcL (0.6-4.6); Lymphocytes % 13.9 %; Mean Corpuscular HGB Conc 33.7 g/dL (31.6-35.5); Mean Corpuscular Hemoglobin 31.7 pg (28.0-33.3); Mean Corpuscular Volume 94.1 fL (83.0-100.0); Mean Platelet Volume 8.9 fL (9.4-12.4); Monocytes # 0.6 K/mcL (0.0-1.3); Monocytes % 10.7 %; Neutrophils # 3.7 K/mcL (1.6-8.9); Platelet Count 209 K/mcL (140-400); Red Blood Count 3.91 M/mcL (4.19-5.50); Red Cell Distribution Width 12.7 % (11.5-14.5)
[2017-07-20 07:47] LABS: BUN/Creatinine Ratio 9 (6-26); Blood Urea Nitrogen 7 mg/dL (8-26); Calcium 8.9 mg/dL (8.6-10.8); Carbon Dioxide 21 mEq/L (19-29); Chloride 105 mEq/L (98-109); Glucose 99 mg/dL (70-99); Magnesium 1.7 mg/dL (1.6-2.6); Osmolality,Calculated 278 (280-300); Potassium 3.4 mEq/L (3.5-4.5); Sodium 135 mEq/L (136-145); eGFR For African Americans > 60 (> 60); eGFR For Non-African Americans > 60 (> 60)
[2017-07-20 08:17] LABS: Hemoglobin 12.4 g/dL (12.9-16.9)
[2017-07-20 09:00] LABS: Hematocrit 33.8 % (37.5-50.1); Hemoglobin 11.6 g/dL (12.9-16.9)
[2017-07-20] MEDS: Artificial Tears SOLN 15 ML BOTTLE BOTH EYES SCH ×4 (10:11→20:45)
[2017-07-20] MEDS: Pantoprazole 40 MG VIAL IVP SCH (10:12)
[2017-07-20] MEDS: Isosorbide MONOnitrate (24 HR) 30 MG TAB.ER.24H PO SCH (10:13)
--- NOTE | 2017-07-20 13:54 | General Surgery Progress Note ---
Date of Encounter: 07/20/17 Time of Encounter: 13:45 - Assessment and Plan (1) Adynamic ileus Current Visit: Yes Status: Acute NPO Clamp NG tube KUB from 07/19- possible splenic flexure lesion CT of abdomen/pelvis today without contrast for further evaluation(contrast given for SBFT 07/17/17) Obtain colonoscopy records from the [facility] from this year- family states that there were no abnormalities on exam a few months ago at the [facility] IV fluids Supportive care Surgery will continue to follow and assess progress (2) Abnormal abdominal x-ray Current Visit: Yes Status: Acute CT scan of abdomen/pelvis for further evaluation of splenic flexure Subjective Patient reports: no new complaints, feels better, still having pain, voiding w/ o difficulty, flatus (1 episode of flatus today), bowel movement, diarrhea, afebrile Objective Vital Signs - Last 8 Hours Temp Pulse Resp BP Pulse Ox 07/20/17 11:45 97.8 F 90 16 114/78 99 07/20/17 08:37 134/90 07/20/17 07:25 97.9 F 87 16 206/111 94 Intake and Output 07/19/17 07/20/17 07/20/17 23:59 07:59 15:59 Intake Total 1540 / 1540 1000 / 1000 Output Total 245 / 245 5 / 5 200 / 200 Balance 1295 / 1295 995 / 995 -200 / -200 Intake: IV Fluids 1300 / 1300 1000 / 1000 D5% And 0.9% Nacl 1000 Ml 1,000 1000 / 1000 ML @ 60 mls/hr IVC .[id number] [facility] Rx#:[id number] Potassium Chloride 10 mEq/100mL 200 / 200 10 meq In 100 ml @ 100 mls/hr IVPB Q1H [facility] Rx#:[id number] Oral 240 / 240 Output: Urine 0 / 0 200 / 200 Gastric Tube Lavage Amount 245 / 245 5 / 5 Right Nare 245 / 245 5 / 5 Other: Meal Dinner Percent of Meal Consumed 80% Stool Size Moderate Moderate Moderate Stool Consistency liquid liquid liquid Stool Color Brown Brown Brown # Bowel Movements 1 1 1 Weight 69.218 kg Blood Glucose* 93 69 114 Patient Weight 07/20/17 23:59 Weight 69.218 kg - General physical appearance well developed, well nourished, no distress - Eyes normal ocular movement - ENT dry mucosa, atraumatic, normocephalic - Neck Neck exam: trachea midline - Respiratory normal respiratory effort, clear to auscultation - Cardiovascular Cardiovascular exam: Present: RRR - Abdomen Abdomen: Present: bowel sounds present (hypoactive), soft, tender (mild, generalized), wound (NG tube to LIWS with 50ml of drainage since midnight) - Neurologic CN 2-12 grossly intact - Psychiatric oriented to person, oriented to place, speech is normal - Labs 07/20/17 08:52 07/20/17 07:20 Diabetes panel 07/20/17 Range/Units 07:20 Sodium 135 L (136-145) mEq/L Potassium 3.4 L (3.5-4.5) mEq/L Chloride 105 (98-109) mEq/L Carbon Dioxide 21 (19-29) mEq/L BUN 7 L (8-26) mg/dL Creatinine 0.82 (0.72-1.25) mg/dL Glucose 99 (70-99) mg/dL Calcium 8.9 (8.6-10.8) mg/dL Calcium panel 07/20/17 Range/Units 07:20 Calcium 8.9 (8.6-10.8) mg/dL Pituitary panel 07/20/17 Range/Units 07:20 Sodium 135 L (136-145) mEq/L Potassium 3.4 L (3.5-4.5) mEq/L Chloride 105 (98-109) mEq/L Carbon Dioxide 21 (19-29) mEq/L BUN 7 L (8-26) mg/dL Creatinine 0.82 (0.72-1.25) mg/dL Glucose 99 (70-99) mg/dL Calcium 8.9 (8.6-10.8) mg/dL Adrenal panel 07/20/17 Range/Units 07:20 Sodium 135 L (136-145) mEq/L Potassium 3.4 L (3.5-4.5) mEq/L Chloride 105 (98-109) mEq/L Carbon Dioxide 21 (19-29) mEq/L BUN 7 L (8-26) mg/dL Creatinine 0.82 (0.72-1.25) mg/dL Glucose 99 (70-99) mg/dL Calcium 8.9 (8.6-10.8) mg/dL Consult Discharge Plan - Plan Referrals: NONE,PCP [Primary Care Provider] - - Attending Attestation For this encounter, I have reviewed the REGIONAL TRAINER or PA documentation, treatment plan, and medical decision making; and I have had face to face time with this patient.
[2017-07-20] MEDS: Ondansetron 4 MG/2 ML VIAL IVP PRN (15:24)
--- NOTE | 2017-07-20 18:44 | Internal Med Progress Note ---
Date of Encounter: 07/20/17 Time of Encounter: 16:00 - Assessment and plan (1) Adynamic ileus Current Visit: Yes Status: Acute Assessment and plan: Patient is doing well, has been passing gas and belching, reports some diarrhea. Surgery continues to follow, CT abd pelvis ordered today for further eval of possible splenic flexure lesion on KUB from 07/19. Pt had colonoscopy at [facility], surgery attempting to obtain records for comparison. Continue IV fluids, supportive care, NG LIWS Chest/Abdomen X-ray 07/17/17 07:00 IMPRESSION: 1. Enteric tube with the side-port in the mid to distal esophagus. Recommend advancement by at least 8 cm. 2. No acute cardiopulmonary abnormality. 3. Prominent air-filled loops of bowel seen throughout the abdomen with stool within the colon. D/ / Reginaldo Arzola MD / Reginaldo Arzola MD Interpreting Provider: Reginaldo Arzola MD Chest/Abdomen X-ray 07/17/17 07:00 IMPRESSION: 1. Enteric tube with the side-port in the mid to distal esophagus. Recommend advancement by at least 8 cm. 2. No acute cardiopulmonary abnormality. 3. Prominent air-filled loops of bowel seen throughout the abdomen with stool within the colon. D/ / Reginaldo Arzola MD / Reginaldo Arzola MD Interpreting Provider: Reginaldo Arzola MD Small Bowel X-Ray 07/17/17 13:13 IMPRESSION: No significant change in gaseous distention of multiple bowel loops. Contrast extends to the ascending colon. NG tube tip projecting over the body of the stomach. D/ / Uriel Oconnor MD / Uriel Oconnor MD Interpreting Provider: Uriel Oconnor MD X-Ray 07/19/17 05:00 IMPRESSION: All transition point from dilated transverse colon to decompressed descending colon at the splenic flexure. An obstructing lesion in this location is not excluded. RECOMMENDATION: Consider colonoscopy D/ / Raphael Dockery MD / Raphael Dockery MD Interpreting Provider: Raphael Dockery MD Abdomen/Pelvis CT 07/20/17 14:10 IMPRESSION: No apparent bowel wall thickening or mass along the included colon. Areas of decompressed colon are of limited evaluation. Correlate with prior colonoscopy if available. Interval gaseous decompression of the colon. Colonic diverticulosis without evidence of diverticulitis. Cholelithiasis. D/ / 07/20/2017 16:03:53 Rikki Shi / david Interpreting Provider: Rikki Shi KUB X-Ray 07/17/17 08:54 IMPRESSION: Nasogastric tube projects is intragastric. Advancement of 5 cm is suggested. Nonspecific bowel gas pattern. Left basilar atelectasis. D/ / Jacob Rodríguez MD / Jacob Rodríguez MD Interpreting Provider: Jacob Rodríguez MD X-Ray 07/16/17 03:11 IMPRESSION: 1. The orogastric tube side port is noted proximal to the GE junction. This should be advanced approximately 11 cm. D/ / Jacob Zapata MD / Jacob Zapata MD Interpreting Provider: Jacob Zapata MD Chest/Abdomen X-ray 07/17/17 07:00 IMPRESSION: 1. Enteric tube with the side-port in the mid to distal esophagus. Recommend advancement by at least 8 cm. 2. No acute cardiopulmonary abnormality. 3. Prominent air-filled loops of bowel seen throughout the abdomen with stool within the colon. D/ / Reginaldo Arzola MD / Reginaldo Arzola MD Interpreting Provider: Reginaldo Arzola MD X-Ray 07/17/17 08:54 IMPRESSION: Nasogastric tube projects is intragastric. Advancement of 5 cm is suggested. Nonspecific bowel gas pattern. Left basilar atelectasis. D/ / Jacob Rodríguez MD / Jacob Rodríguez MD Interpreting Provider: Jacob Rodríguez MD Small Bowel X-Ray 07/17/17 13:13 IMPRESSION: No significant change in gaseous distention of multiple bowel loops. Contrast extends to the ascending colon. NG tube tip projecting over the body of the stomach. D/ / Uriel Oconnor MD / Uriel Oconnor MD Interpreting Provider: Uriel Oconnor MD (2) Hypertension Current Visit: Yes Status: Chronic Assessment and plan: Blood pressure is well controlled today. Hydralazine IV when necessary with parameters. We will restart home meds after NG Qualifiers: Hypertension type: essential hypertension Qualified Code(s): I10 - Essential (primary) hypertension (3) Hyperlipidemia Current Visit: Yes Status: Chronic Assessment and plan: Chronic. Continue home medication when able. Qualifiers: Hyperlipidemia type: unspecified Qualified Code(s): E78.5 - Hyperlipidemia , unspecified (4) DVT prophylaxis Current Visit: Yes Status: Acute Assessment and plan: Heparin subcutaneous. - Subjective Interval history: Patient was seen and assessed at 1600. He is alert, awake, visiting with family members at bedside. He states his pain remains the same, intermittent, sharp. His abdomen is less distended and firm, abdomen is slightly softer today with bowel sounds heard in lower abdome, remains tender in upper abdomen. Pt reports that he is passing gas and is able to tolerate ice chips and has had diarrhea. He is belching, which he had not been doing previosly. He denies any headache, dizziness, chest pain or shortness of breath. - Constitutional Vitals: Temp Pulse Resp BP Pulse Ox 97.2 F L 76 18 118/71 96 07/20/17 18:37 07/20/17 18:37 07/20/17 18:37 07/20/17 18:37 07/20/17 18:37 General appearance: Present: cooperative, A&O X 3, pleasant, no acute distress, answers questions appropriately - Head Head exam: Present: atraumatic, normal inspection, normocephalic - Eye Eye exam: Present: normal appearance, conjuntiva pink, sclera anicteric - Neck Neck exam general surgery: Present: supple, trachea midline. Absent: lymphadenopathy, tenderness - Respiratory Respiratory exam: Present: CTAB. Absent: accessory muscle use, chest wall tenderness, decreased breath sounds, rales, respiratory distress, rhonchi, wheezes - Cardiovascular Cardiovascular exam: Present: RRR, +S1, +S2. Absent: diastolic murmur, gallop, rubs, systolic murmur - GI/Abdominal GI/Abdominal exam: Present: distended, hypoactive bowel sounds, soft, tenderness. Absent: guarding, hepatomegaly - Extremities Exam Extremities exam: Present: normal capillary refill, normal inspection, warm, radial pulses palpable and symmetrical. Absent: calf tenderness, cyanotic, pedal edema, tenderness - Neurological Exam Neurological exam: Present: alert, oriented X3, no focal deficits, pronater drift. Absent: facial droop, speech deficit - Skin Skin exam: Present: dry, intact, normal color, warm. Absent: rash Internal Medicine: Result - Labs CBC & Chem 7: 07/20/17 08:52 07/20/17 07:20 Labs: Short CBC 07/20/17 07/20/17 Range/Units 07:20 08:52 WBC 5.3 (4.3-11.1) K/mcL Hgb 12.4 L D 11.6 L (12.9-16.9) g/dL Hct 36.8 L 33.8 L (37.5-50.1) % Plt Count 209 (140-400) K/mcL Neutrophils # 3.7 (1.6-8.9) K/mcL BMP 07/20/17 07:20 Sodium 135 L Potassium 3.4 L Chloride 105 Carbon Dioxide 21 BUN 7 L Creatinine 0.82 Glucose 99 Calcium 8.9 - ABG Interpretation ABG results: PT/INR, D-dimer PT 12.0 Seconds (9.4-12.1) 07/15/17 21:52 - Impressions Impressions Abdomen/Pelvis CT 07/20/17 14:10 IMPRESSION: No apparent bowel wall thickening or mass along the included colon. Areas of decompressed colon are of limited evaluation. Correlate with prior colonoscopy if available. Interval gaseous decompression of the colon. Colonic diverticulosis without evidence of diverticulitis. Cholelithiasis. D/ / 07/20/2017 16:03:53 Rikki Shi / david Interpreting Provider: Rikki Shi Consult Discharge Plan - Plan Referrals: NONE,PCP [Primary Care Provider] -
[2017-07-20 22:37] LABS: Bilirubin,Urine Small (Negative); Blood,Urine Negative (Negative); Clarity,Urine Cloudy (Clear); Color,Urine Dark Yellow (Yellow); Glucose,Urine (UA) Normal (Normal); Ketones,Urine Trace mg/dL (Negative); Leukocyte Esterase,Urine Small (Negative); Nitrite,Urine Negative (Negative); Protein,Urine 30 mg/dL (Neg-Trace); Specific Gravity,Urine 1.019 (1.010-1.025); Urobilinogen,Urine Normal (Normal)
[2017-07-20 22:40] LABS: Squamous Epithelial Cell,Urine Many per lpf (None-Few); WBC,Urine 15-30 per hpf (0-3)
[2017-07-20 22:52] LABS: RBC,Urine 0-3 per hpf (0-3)
[2017-07-20 22:53] LABS: Bacteria,Urine Few per hpf (None-Few); Mucus,Urine Moderate (Few)
[2017-07-21] MEDS: *HR* Morphine 2 MG/ML SYRINGE IVP PRN ×4 (01:53→21:22)
[2017-07-21] MEDS: *HR* Heparin 5,000 UNIT/ML VIAL SQ SCH ×2 (05:05→18:16)
[2017-07-21] MEDS: D5% in 0.9% NACL 1,000 ML IVC SCH ×2 (05:14→10:55)
[2017-07-21] MEDS: Isosorbide MONOnitrate (24 HR) 30 MG TAB.ER.24H PO SCH (08:01)
[2017-07-21] MEDS: Pantoprazole 40 MG VIAL IVP SCH (08:01)
[2017-07-21] MEDS: Artificial Tears SOLN 15 ML BOTTLE BOTH EYES SCH ×4 (08:04→21:22)
[2017-07-21] MEDS: Ondansetron 4 MG/2 ML VIAL IVP PRN (10:51)
[2017-07-21] MEDS ORDERED: Polyethylene Glycol 3350 255 GM POWDER PO ONE (11:43)
--- NOTE | 2017-07-21 11:57 | General Surgery Progress Note ---
Date of Encounter: 07/21/17 Time of Encounter: 11:45 - Assessment and Plan (1) Adynamic ileus Current Visit: Yes Status: Acute NPO Clamp NG tube Administer 1/2 of a Miralax and Gatorade Bowel prep via NG tube today Plan for colonoscopy with Dr. Lawrence 07/22/17 Risks, benefits, alternatives and expected outcomes reviewed with the patient and he is in agreement to proceed. IV fluids Supportive care Surgery will continue to follow and assess progress (2) Abnormal abdominal x-ray Current Visit: Yes Status: Acute CT scan of abdomen/pelvis- abnormal thickening of the descending colon with decompression noted (no distinct lesion evident on CT) Subjective Patient reports: no new complaints, still having pain, voiding w/o difficulty, no flatus, bowel movement (last BM at 2200 last evening), afebrile Objective Vital Signs - Last 8 Hours Temp Pulse Resp BP Pulse Ox 07/21/17 11:30 98.1 F 81 17 127/84 95 07/21/17 07:04 98.0 F 104 16 159/98 95 07/21/17 03:59 98.3 F 58 18 147/90 98 Intake and Output 07/20/17 07/21/17 07/21/17 23:59 07:59 15:59 Intake Total 1000 / 1000 1070 / 1070 Output Total 400 / 400 Balance 1000 / 1000 670 / 670 Intake: IV Fluids 1000 / 1000 1000 / 1000 D5% And 0.9% Nacl 1000 Ml 1,000 1000 / 1000 1000 / 1000 ML @ 60 mls/hr IVC .[id number] [facility] Rx#:[id number] Oral 50 / 50 Other 20 / 20 Output: Urine 400 / 400 Other: Stool Size Small Stool Consistency loose # Voids 1 # Bowel Movements 1 Weight 72.529 kg Blood Glucose* 115 101 114 Patient Weight 07/21/17 23:59 Weight 72.529 kg - General physical appearance well developed, well nourished, no distress - Eyes normal ocular movement - ENT normal mucosa, atraumatic, normocephalic - Neck Neck exam: trachea midline - Respiratory normal respiratory effort, clear to auscultation - Cardiovascular Cardiovascular exam: Present: RRR - Abdomen Abdomen: Present: bowel sounds present (hypoactive), soft, tender (periumbilical ), wound (NG tube clamped) - Neurologic CN 2-12 grossly intact - Psychiatric oriented to person, oriented to place, speech is normal - Labs 07/20/17 08:52 07/20/17 07:20 Consult Discharge Plan - Plan Referrals: NONE,PCP [Primary Care Provider] - - Attending Attestation For this encounter, I have reviewed the MOLD CUTTING MACHINE OPERATOR or PA documentation, treatment plan, and medical decision making; and I have had face to face time with this patient.
--- NOTE | 2017-07-21 14:32 | Internal Med Progress Note ---
Date of Encounter: 07/21/17 Time of Encounter: 14:29 - Assessment and plan (1) Bowel obstruction Current Visit: Yes Status: Ruled-out Assessment and plan: general surgery following plan on colonoscopy tomorrow Qualifiers: Intestinal obstruction type: other intestinal obstruction Intestinal obstruction extent: unspecified extent Qualified Code(s): K56.699 - Other intestinal obstruction unspecified as to partial versus complete obstruction (2) Hypertension Current Visit: Yes Status: Chronic Assessment and plan: chronic relatively controlled Qualifiers: Hypertension type: essential hypertension Qualified Code(s): I10 - Essential (primary) hypertension (3) Hyperlipidemia Current Visit: Yes Status: Chronic Assessment and plan: continue home med Qualifiers: Hyperlipidemia type: pure hypercholesterolemia Qualified Code(s): E78.00 - Pure hypercholesterolemia, unspecified; E78.0 - Pure hypercholesterolemia (4) Adynamic ileus Current Visit: Yes Status: Acute Assessment and plan: some improcement colonoscopy in am (5) Hypokalemia Current Visit: Yes Status: Acute Assessment and plan: replace - Subjective Interval history: Patient with history ofhtn, copd, cad, dementia admitted with abd pain diagnosed with adynamic illeus being followed by general surgery. today say he feels better . abd is soft surgery plans on colonoscopy tomorrow - Constitutional Vitals: Temp Pulse Resp BP Pulse Ox 98.1 F 81 17 127/84 95 07/21/17 11:30 07/21/17 11:30 07/21/17 11:30 07/21/17 11:30 07/21/17 11:30 General appearance: Present: cooperative, A&O X 3, pleasant, no acute distress, answers questions appropriately - Eye Eye exam: Present: PERRL, conjuntiva pink, sclera anicteric Pupils: Present: PERRL - Neck Neck exam general surgery: Present: supple, trachea midline. Absent: lymphadenopathy - Respiratory Respiratory exam: Present: CTAB. Absent: accessory muscle use, rales, rhonchi, wheezes - Cardiovascular Cardiovascular exam: Present: RRR, +S1, +S2. Absent: diastolic murmur, gallop, rubs, systolic murmur - GI/Abdominal GI/Abdominal exam: Present: distended, soft Internal Medicine: Result - Labs CBC & Chem 7: 07/20/17 08:52 07/20/17 07:20 Labs: Urine 07/20/17 Range/Units 22:20 Urine Color Dark Yellow (Yellow) Urine Clarity Cloudy A (Clear) Urine pH 6.0 (5.0-8.0) pH Units Ur Specific [place] 1.019 (1.010-1.025) Urine Protein 30 H (Neg-Trace) mg/dL Urine Glucose (UA) Normal (Normal) mg/dL - ABG Interpretation ABG results: PT/INR, D-dimer PT 12.0 Seconds (9.4-12.1) 07/15/17 21:52 - Impressions Impressions Abdomen/Pelvis CT 07/20/17 14:10 IMPRESSION: No apparent bowel wall thickening or mass along the included colon. Areas of decompressed colon are of limited evaluation. Correlate with prior colonoscopy if available. Interval gaseous decompression of the colon. Colonic diverticulosis without evidence of diverticulitis. Cholelithiasis. D/ / 07/20/2017 16:03:53 Rikki Shi / david Interpreting Provider: Rikki Shi Consult Discharge Plan - Plan Referrals: NONE,PCP [Primary Care Provider] -
[2017-07-22] MEDS: D5% in 0.9% NACL 1,000 ML IVC SCH ×2 (03:40→20:10)
[2017-07-22] MEDS: *HR* Heparin 5,000 UNIT/ML VIAL SQ SCH ×2 (05:49→17:14)
[2017-07-22] MEDS: *HR* Morphine 2 MG/ML SYRINGE IVP PRN ×3 (06:37→20:10)
[2017-07-22] MEDS ORDERED: *HR* Midazolam HCl 5 MG/5 ML VIAL IVP ONE ×2 (07:09→07:42)
[2017-07-22] MEDS ORDERED: *HR* FentaNYL (PF) 100 MCG/2 ML VIAL ONE (07:09)
[2017-07-22] MEDS ORDERED: *HR* FentaNYL (PF) 100 MCG/2 ML VIAL IVP ONE (07:42)
[2017-07-22] MEDS ORDERED: Simethicone 40 MG/0.6 ML MLS IR ONE (07:42)
--- NOTE | 2017-07-22 07:42 | History & Physical Report ---
Date of Encounter: 07/22/17 Time of Encounter: 07:42 24 Hour HP Update - Instructions Instructions: If the History and Physical is less than 30 days old and was completed prior to A.M. admission and or procedure and has NOT been updated on calendar day of procedure please complete this update prior to performing procedure. - Update Patient reports changes in Medical Condition: No Changes in examination, assessment, or condition: No Changes in Medication: No Preop tests/diagnostics Reviewed: Yes Surgery Remains Indicated: Yes Consent for Planned Operative Procedure(s) Verified: Yes
[2017-07-22] MEDS ORDERED: 0.9 % Sodium Chloride 1,000 ML IVC SCH (07:45)
[2017-07-22] MEDS: Isosorbide MONOnitrate (24 HR) 30 MG TAB.ER.24H PO SCH (08:52)
[2017-07-22] MEDS: Artificial Tears SOLN 15 ML BOTTLE BOTH EYES SCH ×4 (08:57→20:05)
[2017-07-22] MEDS: Pantoprazole 40 MG VIAL IVP SCH (09:05)
--- NOTE | 2017-07-22 12:00 | Internal Med Progress Note ---
Date of Encounter: 07/22/17 Time of Encounter: 11:58 - Assessment and plan (1) Bowel obstruction Current Visit: Yes Status: Ruled-out Assessment and plan: clinically imrpoved and resolving colonoscopy today normal finding Qualifiers: Intestinal obstruction type: other intestinal obstruction Intestinal obstruction extent: unspecified extent Qualified Code(s): K56.699 - Other intestinal obstruction unspecified as to partial versus complete obstruction (2) Hypertension Current Visit: Yes Status: Chronic Assessment and plan: well controlled Qualifiers: Hypertension type: essential hypertension Qualified Code(s): I10 - Essential (primary) hypertension (3) Hyperlipidemia Current Visit: Yes Status: Chronic Assessment and plan: chronic Qualifiers: Hyperlipidemia type: pure hypercholesterolemia Qualified Code(s): E78.00 - Pure hypercholesterolemia, unspecified; E78.0 - Pure hypercholesterolemia (4) Adynamic ileus Current Visit: Yes Status: Acute Assessment and plan: resolving (5) Hypokalemia Current Visit: Yes Status: Acute - Subjective Interval history: Patient with history ofhtn, copd, cad, dementia admitted with abd pain diagnosed with adynamic illeus being followed by general surgery. today say he feels better . abd is soft surgery plans on colonoscopy tomorrow patient unerwent colonoscopy today normal finding will start feeding Ng out feels much better - Constitutional Vitals: Temp Pulse Resp BP Pulse Ox 97.4 F L 75 16 128/86 98 07/22/17 11:27 07/22/17 11:27 07/22/17 11:27 07/22/17 11:27 07/22/17 11:27 General appearance: Present: cooperative, A&O X 3, pleasant, no acute distress, answers questions appropriately - Head Head exam: Present: atraumatic, normocephalic - Eye Eye exam: Present: PERRL, conjuntiva pink, sclera anicteric Pupils: Present: PERRL - Respiratory Respiratory exam: Present: CTAB. Absent: accessory muscle use, rales, rhonchi, wheezes - Cardiovascular Cardiovascular exam: Present: RRR, +S1, +S2. Absent: diastolic murmur, gallop, rubs, systolic murmur - GI/Abdominal GI/Abdominal exam: Present: normal bowel sounds, soft, no peritoneal signs. Absent: distended, tenderness Internal Medicine: Result - Labs CBC & Chem 7: 07/20/17 08:52 07/20/17 07:20 - ABG Interpretation ABG results: PT/INR, D-dimer PT 12.0 Seconds (9.4-12.1) 07/15/17 21:52 Consult Discharge Plan - Plan Referrals: NONE,PCP [Primary Care Provider] -
[2017-07-22] MEDS: Ondansetron 4 MG/2 ML VIAL IVP PRN (14:45)
[2017-07-23] MEDS: *HR* Heparin 5,000 UNIT/ML VIAL SQ SCH ×2 (05:47→16:33)
[2017-07-23] MEDS: Isosorbide MONOnitrate (24 HR) 30 MG TAB.ER.24H PO SCH (08:00)
[2017-07-23] MEDS: Artificial Tears SOLN 15 ML BOTTLE BOTH EYES SCH ×4 (08:01→20:59)
[2017-07-23] MEDS: Pantoprazole 40 MG VIAL IVP SCH (08:01)
[2017-07-23] MEDS: *HR* Morphine 2 MG/ML SYRINGE IVP PRN ×3 (08:11→22:47)
--- NOTE | 2017-07-23 13:08 | Internal Med Progress Note ---
Date of Encounter: 07/23/17 Time of Encounter: 13:06 - Assessment and plan (1) Bowel obstruction Current Visit: Yes Status: Ruled-out Assessment and plan: clinically much improved Qualifiers: Intestinal obstruction type: other intestinal obstruction Intestinal obstruction extent: unspecified extent Qualified Code(s): K56.699 - Other intestinal obstruction unspecified as to partial versus complete obstruction (2) Hypertension Current Visit: Yes Status: Chronic Assessment and plan: well controlled Qualifiers: Hypertension type: essential hypertension Qualified Code(s): I10 - Essential (primary) hypertension (3) Hyperlipidemia Current Visit: Yes Status: Chronic Assessment and plan: chronic Qualifiers: Hyperlipidemia type: pure hypercholesterolemia Qualified Code(s): E78.00 - Pure hypercholesterolemia, unspecified; E78.0 - Pure hypercholesterolemia (4) Adynamic ileus Current Visit: Yes Status: Acute Assessment and plan: clinically resolving (5) Hypokalemia Current Visit: Yes Status: Acute - Subjective Interval history: Patient with history ofhtn, copd, cad, dementia admitted with abd pain diagnosed with adynamic illeus being followed by general surgery. today say he feels better . abd is soft surgery plans on colonoscopy tomorrow patient unerwent colonoscopy yesterday and started on diet no nauseaa or vomitiing feels much better - Constitutional Vitals: Temp Pulse Resp BP Pulse Ox 97.6 F 74 16 143/91 99 07/23/17 12:10 07/23/17 12:10 07/23/17 12:10 07/23/17 12:15 07/23/17 12:10 General appearance: Present: cooperative, A&O X 3, pleasant, no acute distress, answers questions appropriately - Eye Eye exam: Present: PERRL, conjuntiva pink, sclera anicteric Pupils: Present: PERRL - Neck Neck exam general surgery: Present: supple, trachea midline. Absent: lymphadenopathy - Respiratory Respiratory exam: Present: CTAB. Absent: accessory muscle use, rales, rhonchi, wheezes - Cardiovascular Cardiovascular exam: Present: RRR, +S1, +S2. Absent: diastolic murmur, gallop, rubs, systolic murmur - GI/Abdominal GI/Abdominal exam: Present: normal bowel sounds, soft, no peritoneal signs. Absent: distended, tenderness Internal Medicine: Result - Labs CBC & Chem 7: 07/20/17 08:52 07/20/17 07:20 - ABG Interpretation ABG results: PT/INR, D-dimer PT 12.0 Seconds (9.4-12.1) 07/15/17 21:52 Consult Discharge Plan - Plan Referrals: NONE,PCP [Primary Care Provider] -
[2017-07-23] MEDS: Ondansetron 4 MG/2 ML VIAL IVP PRN (13:33)
--- NOTE | 2017-07-23 14:46 | General Surgery Progress Note ---
Date of Encounter: 07/23/17 Time of Encounter: 14:00 - Assessment and Plan (1) Adynamic ileus Current Visit: Yes Status: Acute Advance to full liquid diet Colonoscopy with Dr. Lawrence 07/22/17- no colonic mass or colitis identified IV fluids Supportive care Surgery will sign off at this time. Thank you for allowing us to participate in the care of this patient. Please call with any further questions/concerns. (2) Abnormal abdominal x-ray Current Visit: Yes Status: Acute Colonoscopy complete 07/22/17- no colonic mass or colitis identified Subjective Patient reports: no new complaints, still having pain, pain is less, tolerating liquids well, voiding w/o difficulty, no flatus, diarrhea, afebrile Objective Vital Signs - Last 8 Hours Temp Pulse Resp BP Pulse Ox 07/23/17 12:15 143/91 07/23/17 12:10 97.6 F 74 16 154/90 99 07/23/17 07:42 98.0 F 83 15 144/88 100 Intake and Output 07/22/17 07/23/17 07/23/17 23:59 07:59 15:59 Intake Total 1400 / 1400 Output Total 300 / 300 1000 / 1000 Balance 1100 / 1100 -1000 / -1000 Intake: IV Fluids 1000 / 1000 D5% And 0.9% Nacl 1000 Ml 1,000 1000 / 1000 ML @ 60 mls/hr IVC .[id number] ARNOLD Rx#:[id number] Oral 400 / 400 Output: Urine 300 / 300 1000 / 1000 Other: Weight 60.237 kg Blood Glucose* 96 101 129 Patient Weight 07/23/17 23:59 Weight 60.237 kg - General physical appearance well developed, well nourished, no distress - Eyes normal ocular movement - ENT normal mucosa, atraumatic, normocephalic - Neck Neck exam: trachea midline - Respiratory normal respiratory effort, clear to auscultation - Cardiovascular Cardiovascular exam: Present: RRR - Abdomen Abdomen: Present: bowel sounds present, soft, non tender - Neurologic CN 2-12 grossly intact - Psychiatric oriented to person, oriented to place, speech is normal - Labs 07/20/17 08:52 07/20/17 07:20 Consult Discharge Plan - Plan Referrals: NONE,PCP [Primary Care Provider] -
[2017-07-23] MEDS ORDERED: Acetaminophen 325 MG TABLET PO PRN (22:44)
[2017-07-24 05:31] LABS: Hematocrit 30.2 % (37.5-50.1); Hemoglobin 10.3 g/dL (12.9-16.9); Mean Corpuscular HGB Conc 34.1 g/dL (31.6-35.5); Mean Corpuscular Hemoglobin 31.6 pg (28.0-33.3); Mean Corpuscular Volume 92.6 fL (83.0-100.0); Platelet Count 214 K/mcL (140-400); Red Blood Count 3.26 M/mcL (4.19-5.50); Red Cell Distribution Width 12.7 % (11.5-14.5)
[2017-07-24 05:58] LABS: BUN/Creatinine Ratio 3 (6-26); Blood Urea Nitrogen 2 mg/dL (8-26); Calcium 8.7 mg/dL (8.6-10.8); Carbon Dioxide 23 mEq/L (19-29); Chloride 101 mEq/L (98-109); Glucose 111 mg/dL (70-99); Osmolality,Calculated 273 (280-300); Sodium 133 mEq/L (136-145); eGFR For African Americans > 60 (> 60); eGFR For Non-African Americans > 60 (> 60)
[2017-07-24] MEDS: D5% in 0.9% NACL 1,000 ML IVC SCH (06:15)
[2017-07-24] MEDS: *HR* Heparin 5,000 UNIT/ML VIAL SQ SCH ×2 (06:15→18:12)
[2017-07-24] MEDS: Pantoprazole 40 MG VIAL IVP SCH (07:57)
[2017-07-24] MEDS: Artificial Tears SOLN 15 ML BOTTLE BOTH EYES SCH ×4 (07:57→20:17)
[2017-07-24] MEDS: Isosorbide MONOnitrate (24 HR) 30 MG TAB.ER.24H PO SCH (07:57)
[2017-07-24] MEDS: *HR* Morphine 2 MG/ML SYRINGE IVP PRN ×2 (08:08→18:15)
[2017-07-24] MEDS: Ondansetron 4 MG/2 ML VIAL IVP PRN ×2 (08:08→18:15)
[2017-07-24] MEDS ORDERED: Potassium Chloride Elixir 20 MEQ/15 ML UDC PO ONE (14:25)
--- NOTE | 2017-07-24 14:39 | Internal Med Progress Note ---
Date of Encounter: 07/24/17 Time of Encounter: 14:37 - Assessment and plan (1) Adynamic ileus Current Visit: Yes Status: Acute Assessment and plan: improved. Surgery signed off; colonoscopy was noted to be normal, biopsies pending; continue full liquid diet and advance as tolerated; patient still reports post-prandial central abdominal pain; may benefit from OP GI consult; continue supportive care with PRN antiemetics and PPIs; (2) COPD (chronic obstructive pulmonary disease) Current Visit: Yes Status: Chronic Qualifiers: COPD type: unspecified COPD Qualified Code(s): J44.9 - Chronic obstructive pulmonary disease, unspecified (3) CAD (coronary artery disease) Current Visit: Yes Status: Chronic Qualifiers: Coronary Disease-Associated Artery/Lesion type: [place] artery [place] vs. transplanted heart: [place] heart Associated angina: without angina Qualified Code(s): I25.10 - Atherosclerotic heart disease of [place] coronary artery without angina pectoris (4) Hypertension Current Visit: Yes Status: Chronic Assessment and plan: BP well-controlled; continue home meds; Qualifiers: Hypertension type: essential hypertension Qualified Code(s): I10 - Essential (primary) hypertension (5) Hyperlipidemia Current Visit: Yes Status: Chronic Qualifiers: Hyperlipidemia type: pure hypercholesterolemia Qualified Code(s): E78.00 - Pure hypercholesterolemia, unspecified; E78.0 - Pure hypercholesterolemia (6) Hypokalemia Current Visit: Yes Status: Acute Assessment and plan: replace with PO KCl and recheck in am; (7) Constipation Current Visit: Yes Status: Chronic Assessment and plan: start Colace and Miralax; Qualifiers: Constipation type: slow transit constipation Qualified Code(s): K59.01 - Slow transit constipation - Subjective Interval history: Feels better but continues to have central abdominal pain and distension, worse after eating; tolerates full liquid diet; no fever/chills; reports nausea and constipation, chronic; - Constitutional Vitals: Temp Pulse Resp BP Pulse Ox 97.9 F 78 17 141/84 100 07/24/17 14:09 07/24/17 14:09 07/24/17 14:09 07/24/17 14:09 07/24/17 14:09 General appearance: Present: cooperative, A&O X 3, answers questions appropriately - Respiratory Respiratory exam: Present: CTAB. Absent: accessory muscle use, rales, rhonchi, wheezes - Cardiovascular Cardiovascular exam: Present: RRR, +S1, +S2. Absent: diastolic murmur, gallop, rubs, systolic murmur - GI/Abdominal GI/Abdominal exam: Present: distended (tympanic note), normal bowel sounds, soft (tenderness in central abdomen, no guarding/rigidity), no peritoneal signs. Absent: tenderness - Extremities Exam Extremities exam: Present: full ROM, warm, radial pulses palpable and symmetrical. Absent: calf tenderness, cyanotic, pedal edema - Neurological Exam Neurological exam: Present: CN II-XII intact, oriented X3, no focal deficits. Absent: pronater drift, facial droop, speech deficit Internal Medicine: Result - Labs CBC & Chem 7: 07/24/17 05:19 07/24/17 05:19 Labs: Short CBC 07/24/17 Range/Units 05:19 WBC 7.0 (4.3-11.1) K/mcL Hgb 10.3 L (12.9-16.9) g/dL Hct 30.2 L (37.5-50.1) % Plt Count 214 (140-400) K/mcL BMP 07/24/17 05:19 Sodium 133 L Potassium 3.0 L Chloride 101 Carbon Dioxide 23 BUN 2 L Creatinine 0.77 Glucose 111 H Calcium 8.7 - ABG Interpretation ABG results: PT/INR, D-dimer PT 12.0 Seconds (9.4-12.1) 07/15/17 21:52 Consult Discharge Plan - Plan Referrals: NONE,PCP [Primary Care Provider] -
--- NOTE | 2017-07-24 16:09 | Electrocardiograph Report ---
[address] [place] [address] Test Date: 2017-07-22 Pat Name: Bala Briggs Department: 113 Room: 3B44 Gender: M Medical Affairs Director: MARLENA : 1945 Requested By: Joseph Baig Order Number: [id number] Reading MD: Yang Davis Measurements Intervals [place] Rate: 81 P: 54 LA: 156 QRS: 16 QRSD: 106 T: 39 QT: 406 QTc: 443 Interpretive Statements SINUS RHYTHM POSSIBLE LATERAL MYOCARDIAL INFARCTION, PROBABLY OLD Electronically Signed On 07-24-2017 16:08:22 EST by Yang Davis
[2017-07-24] MEDS: Topiramate 100 MG TABLET PO SCH (20:13)
[2017-07-24] MEDS: Mirtazapine 15 MG TABLET PO SCH (20:14)
[2017-07-25 04:58] LABS: BUN/Creatinine Ratio 5 (6-26); Calcium 9.2 mg/dL (8.6-10.8); Carbon Dioxide 22 mEq/L (19-29); Chloride 102 mEq/L (98-109); Glucose 107 mg/dL (70-99); Magnesium 1.9 mg/dL (1.6-2.6); Osmolality,Calculated 282 (280-300); Sodium 137 mEq/L (136-145); eGFR For African Americans > 60 (> 60); eGFR For Non-African Americans > 60 (> 60)
[2017-07-25 04:59] LABS: Blood Urea Nitrogen 5 mg/dL (8-26); Potassium 3.7 mEq/L (3.5-4.5)
[2017-07-25] MEDS: *HR* Heparin 5,000 UNIT/ML VIAL SQ SCH ×2 (06:06→18:08)
[2017-07-25] MEDS: Cholecalciferol (D-3) 1,000 UNIT TABLET PO SCH (09:18)
[2017-07-25] MEDS: Isosorbide MONOnitrate (24 HR) 30 MG TAB.ER.24H PO SCH (09:18)
[2017-07-25] MEDS: Cyanocobalamin (B-12) 1,000 MCG TABLET PO SCH (09:18)
[2017-07-25] MEDS: Folic Acid 1 MG TABLET PO SCH (09:19)
[2017-07-25] MEDS: Aspirin Enteric Coated 81 MG Tablet PO SCH (09:19)
[2017-07-25] MEDS: Artificial Tears SOLN 15 ML BOTTLE BOTH EYES SCH ×4 (09:23→20:00)
--- NOTE | 2017-07-25 13:28 | Discharge Summary ---
Date of Encounter: 07/25/17 Time of Encounter: 13:23 - Discharge Diagnosis (1) Bowel obstruction Priority: Primary Status: Ruled-out Comments: colonoscopy negative tolorating feeding Qualifiers: Intestinal obstruction type: other intestinal obstruction Intestinal obstruction extent: unspecified extent Qualified Code(s): K56.699 - Other intestinal obstruction unspecified as to partial versus complete obstruction (2) Hypertension Priority: Secondary Status: Chronic Comments: well controlled Qualifiers: Hypertension type: essential hypertension Qualified Code(s): I10 - Essential (primary) hypertension (3) Hyperlipidemia Priority: Secondary Status: Chronic Comments: chronic Qualifiers: Hyperlipidemia type: pure hypercholesterolemia Qualified Code(s): E78.00 - Pure hypercholesterolemia, unspecified; E78.0 - Pure hypercholesterolemia (4) Adynamic ileus Priority: Secondary Status: Suspected Comments: resolved (5) Hypokalemia Priority: Secondary Status: Acute Comments: resolved - Discharge Medications Prescriptions: Docusate [Colace] 100 mg PO BID #60 capsule Polyethylene Glycol 3350 [MiraLAX] 17 gm PO DAILY #30 powd.pack Home Medications: Alendronate Sodium [Fosamax] 5 mg PO DAILY 07/15/17 [History] Aspirin Enteric Coated [Aspirin EC] 81 mg PO DAILY 07/15/17 [History] Atorvastatin Calcium [Lipitor] 80 mg PO HS 07/15/17 [History] Brimonidine 0.2% [Alphagan] 1 drop BOTH EYES BID 07/15/17 [History] Carboxymethylcellulose Sodium [Refresh Liquigel] 1 drop BOTH EYES QID 07/15/17 [ History] Cholecalciferol (D-3) [Vitamin D] 1,000 unit PO BID 07/15/17 [History] Clobetasol Propionate [Temovate] 1 appl TP BID 07/15/17 [History] Cyanocobalamin (Vitamin B-12) [Vitamin B12] 2,000 mcg PO DAILY 07/15/17 [History ] Cyclobenzaprine [Flexeril] 10 mg PO BID PRN 07/15/17 [History] Cyclosporine [Restasis Multidose] 1 drop BOTH EYES Q12H 07/15/17 [History] Folic Acid 1 mg PO DAILY 07/15/17 [History] HydrOXYzine 10 mg PO BID PRN 07/15/17 [History] Isosorbide MONOnitrate (24 HR) [Imdur] 15 mg PO DAILY 07/15/17 [History] Ketoconazole 2% CRM [Nizoral Cream] 1 appl TP BID PRN 07/15/17 [History] Ketoconazole Shampoo [Nizoral Shampoo] 1 appl TP Q48H 07/15/17 [History] Lisinopril 2.5 mg PO DAILY 07/15/17 [History] Magic Mouthwash [Magic Mouthwash BLM] 15 ml PO DAILY 07/15/17 [History] Magnesium Hydroxide [Milk of Magnesia] 1,200 mg PO BID PRN 07/15/17 [History] Melatonin [Melatin] 6 mg PO HS 07/15/17 [History] Metoprolol [Lopressor] 25 mg PO BID 07/15/17 [History] Mirtazapine [Remeron] 30 mg PO HS 07/15/17 [History] Nitroglycerin [Nitrostat] 0.4 mg SL Q5M PRN 07/15/17 [History] Omeprazole [PriLOSEC] 40 mg PO DAILY 07/15/17 [History] Pilocarpine HCl [Salagen] 5 mg PO TID 07/15/17 [History] Polyethylene Glycol 3350 [MiraLAX] 17 gm PO Q48H 07/15/17 [History] Quetiapine Fumarate [Seroquel] 600 mg PO HS 07/15/17 [History] SUMAtriptan Succinate [Imitrex] 100 mg PO Q2H PRN MDD 200 mg 07/15/17 [History] Sucralfate [Carafate] 1 gm PO QAM AND QHS 07/15/17 [History] Tamsulosin [Flomax] 0.4 mg PO DAILY 07/15/17 [History] Topiramate [Topamax] 150 mg PO HS 07/15/17 [History] Tramadol HCl [Ultram] 75 mg PO QID PRN 07/15/17 [History] predniSONE [PredniSONE] 5 mg PO DAILY 07/15/17 [History] Docusate [Colace] 100 mg PO BID #60 capsule 07/25/17 [Rx] Polyethylene Glycol 3350 [MiraLAX] 17 gm PO DAILY #30 powd.pack 07/25/17 [Rx] Allergies/Adverse Reactions: 3 Allergy/AdvReac Type Severity Reaction Status Date / Time senna AdvReac Unknown Verified 07/15/17 18:13 Date of admission: 07/15/17 18:20 Primary care physician: PCP NONE Consults: 07/18/17 17:25 Consult to Invasive Line Access Team [CONS] Routine Reason for Consult: Iv access Line Type: EPIV 07/19/17 14:05 Consult to Physical Therapy [CONS] Routine Comment: Evaluate, develop and implement POC Reason for Consult: deconditioning Discharging clinician: Harvey Mcelroy Anticipated date of discharge: 07/25/17 - Patient Status Disposition: Home, Self-Care Condition: Good Overall status at discharge: patient is progressing back to baseline - Discharge Instructions Forms: ED Satisfaction Letter, Work/School Release Additional Instructions: follow up with surgery - Diet and Activity Activity: other Diet: regular diet Hospital course: Mr. Briggs is a 72 year old male - Time Spent with Patient Total time spent providing and/or coordinating discharge services: - Constitutional Vitals: Temp Pulse Resp BP Pulse Ox 98 F 101 18 102/70 100 07/25/17 10:39 07/25/17 10:39 07/25/17 10:39 07/25/17 10:39 07/25/17 10:39 General appearance: Present: cooperative, A&O X 3, answers questions appropriately
[2017-07-25] MEDS: *HR* Morphine 2 MG/ML SYRINGE IVP PRN ×2 (15:25→19:50)
[2017-07-25] MEDS: Mirtazapine 15 MG TABLET PO SCH (20:00)
[2017-07-25] MEDS: Topiramate 100 MG TABLET PO SCH (20:00)
[2017-07-26] MEDS: *HR* Heparin 5,000 UNIT/ML VIAL SQ SCH (05:24)
[2017-07-26] MEDS: *HR* Morphine 2 MG/ML SYRINGE IVP PRN (08:21)
[2017-07-26] MEDS: Cholecalciferol (D-3) 1,000 UNIT TABLET PO SCH (08:21)
[2017-07-26] MEDS: Folic Acid 1 MG TABLET PO SCH (08:22)
[2017-07-26] MEDS: Isosorbide MONOnitrate (24 HR) 30 MG TAB.ER.24H PO SCH (08:22)
[2017-07-26] MEDS: Aspirin Enteric Coated 81 MG Tablet PO SCH (08:22)
[2017-07-26] MEDS: Cyanocobalamin (B-12) 1,000 MCG TABLET PO SCH (08:22)
[2017-07-26] MEDS: Artificial Tears SOLN 15 ML BOTTLE BOTH EYES SCH (08:23)
--- NOTE | 2017-07-26 09:33 | Internal Med Progress Note ---
Date of Encounter: 07/26/17 Time of Encounter: 09:31 - Assessment and plan (1) Epigastric pain Current Visit: Yes Status: Acute Assessment and plan: Could be from gastritis. Patient on omeprazole and Carafate. Outpatient follow -up with GI. (2) Adynamic ileus Current Visit: Yes Status: Acute Assessment and plan: Improved. Colonoscopy was negative. Continue Colace and MiraLAX. Patient stable for discharge at this time. (3) Constipation Current Visit: Yes Status: Chronic Assessment and plan: Continue Colace and MiraLAX Qualifiers: Constipation type: slow transit constipation Qualified Code(s): K59.01 - Slow transit constipation (4) COPD (chronic obstructive pulmonary disease) Current Visit: Yes Status: Chronic Assessment and plan: No acute exacerbation Qualifiers: COPD type: unspecified COPD Qualified Code(s): J44.9 - Chronic obstructive pulmonary disease, unspecified (5) Hyperlipidemia Current Visit: Yes Status: Chronic Assessment and plan: Continue atorvastatin Qualifiers: Hyperlipidemia type: pure hypercholesterolemia Qualified Code(s): E78.00 - Pure hypercholesterolemia, unspecified; E78.0 - Pure hypercholesterolemia (6) Hypertension Current Visit: Yes Status: Chronic Assessment and plan: Well-controlled Qualifiers: Hypertension type: essential hypertension Qualified Code(s): I10 - Essential (primary) hypertension - Subjective Interval history: Tolerating oral diet well. No nausea or vomiting. Continues to have some midepigastric abdominal discomfort. Has not had a bowel movement yet. - Constitutional Vitals: Temp Pulse Resp BP Pulse Ox 97.7 F 99 16 119/84 98 07/26/17 07:18 07/26/17 07:18 07/26/17 07:18 07/26/17 07:18 07/26/17 07:18 General appearance: Present: cooperative, A&O X 3, answers questions appropriately - Respiratory Respiratory exam: Present: CTAB. Absent: accessory muscle use, rales, rhonchi, wheezes - Cardiovascular Cardiovascular exam: Present: RRR, +S1, +S2. Absent: diastolic murmur, gallop, rubs, systolic murmur - GI/Abdominal GI/Abdominal exam: Present: normal bowel sounds, soft, tenderness (Epigastric), no peritoneal signs. Absent: distended Internal Medicine: Result - Labs CBC & Chem 7: 07/24/17 05:19 07/25/17 04:13 - ABG Interpretation ABG results: PT/INR, D-dimer PT 12.0 Seconds (9.4-12.1) 07/15/17 21:52 Consult Discharge Plan - Plan Additional Instructions: follow up with surgery Referrals: Maricarmen Khalil MD [Partnered Physician] - (For further evaluation of epigastric pain as outpatient) NONE,PCP [Primary Care Provider] - (In 1-2 weeks) Prescriptions: Docusate [Colace] 100 mg PO BID #60 capsule Polyethylene Glycol 3350 [MiraLAX] 17 gm PO DAILY #30 powd.pack
[2017-07-26 11:17] VITALS: BP 108/73
== END 2017-07-26 12:39 | disposition home or self-care (01) | DRG 390 ==
LOC: EMEROO 17:11 → 3BNU 17:11 → SUATTDRO 18:20 → 3BNU 18:36
PROVIDERS: ADMIT Registered Nurse; ATTEND Internal Medicine